=== PATIENT | female | born 1945 | race Caucasian/White ===

== ENCOUNTER 2019-04-05 08:00 | Inpatient (IN) | payer MEDICARE ==
[2019-04-05 09:47] VITALS: BMI 29.0
[2019-04-10] MEDS ORDERED: Tranexamic Acid 1,000 MG/10 ML VIAL ONE (06:49)
[2019-04-10] MEDS ORDERED: Sodium Chloride 0.9% 100 ML ONE (06:49)
[2019-04-10] MEDS ORDERED: Vancomycin HCl 1.5 GM in Sodium Chloride 0.9% 250 ML 300 ML IVPB SCH (07:00)
[2019-04-10] MEDS ORDERED: Fentanyl 100 MCG/2 ML VIAL ONE ×2 (07:26→10:52)
[2019-04-10] MEDS ORDERED: Midazolam HCl 2 mg/2 ml Vial ONE (07:26)
[2019-04-10] MEDS ORDERED: Lidocaine 1.5% w/Epi 1:200K 30 ML VIAL (Epid Use) ONE (07:43)
[2019-04-10] MEDS ORDERED: Promethazine HCl 25 MG/ML VIAL IM PRN ×3 (08:45→10:11)
[2019-04-10] MEDS ORDERED: HYDROcodone/Acetaminophen 10/325 mg Tablet PO PRN ×2 (08:45)
[2019-04-10] MEDS ORDERED: Ondansetron PF 4 MG/2 ML Vial IVP PRN (08:45)
[2019-04-10] MEDS ORDERED: Zolpidem Tartrate 5 MG TAB PO PRN ×2 (08:45→09:00)
[2019-04-10] MEDS ORDERED: Acetaminophen 325 MG TAB PO PRN (08:45)
[2019-04-10] MEDS ORDERED: diphenhydrAMINE 25 MG CAP PO PRN ×2 (08:45→09:00)
[2019-04-10] MEDS ORDERED: Acetaminophen 500 MG TAB PO PRN (08:53)
[2019-04-10] MEDS ORDERED: Lisinopril 10 MG TAB PO SCH (09:00)
[2019-04-10] MEDS ORDERED: Naloxone HCl 0.4 mg/ml Vial IV PRN (09:00)
[2019-04-10] MEDS ORDERED: diphenhydrAMINE 50 MG/ML VIAL IVP PRN (09:00)
[2019-04-10] MEDS ORDERED: Hydrocerin (Eucerin) Cream 120 gm Jar TOP PRN (09:00)
[2019-04-10] MEDS ORDERED: diphenhydrAMINE 50 MG/ML VIAL IM PRN (09:00)
[2019-04-10] MEDS ORDERED: RANITIDINE HCL 150 MG PO SCH (09:00)
[2019-04-10] MEDS ORDERED: traMADol HCl 50 MG TAB PO PRN (09:00)
[2019-04-10] MEDS ORDERED: Oxybutynin 5 MG TAB PO SCH (09:00)
[2019-04-10] MEDS ORDERED: Non-Formulary Item 1 EACH (Ubidecarenone [Co Q-10] 200 MG) PO SCH (09:00)
[2019-04-10] MEDS ORDERED: Multivitamin W/ Minerals 1 TAB PO SCH ×2 (09:00)
[2019-04-10] MEDS ORDERED: Promethazine HCl 25 MG SUPP PR PRN (09:00)
[2019-04-10] MEDS ORDERED: MULTIVITAMIN WITH MINERALS PO SCH (09:00)
[2019-04-10] MEDS ORDERED: Fentanyl 5 mcg/Bup 0.075% Cadd 100 ML EPIDURAL SCH (09:00)
[2019-04-10] MEDS ORDERED: Naloxone HCl 0.4 mg/ml Vial IVP PRN (09:00)
[2019-04-10] MEDS ORDERED: Bupivacaine/Epinephrine 0.25% 30 ML VIAL ONE (09:48)
[2019-04-10] MEDS ORDERED: Rocuronium Bromide 10 MG/ML (10ML VIAL) ONE (09:50)
[2019-04-10] MEDS ORDERED: ePHEDrine 50 MG/ML VIAL ONE (09:50)
[2019-04-10] MEDS ORDERED: Lidocaine 1% PF 5 ML VIAL ONE (09:50)
[2019-04-10] MEDS ORDERED: PROPOFOL 200 MG/20 ML VIAL ONE (09:50)
[2019-04-10] MEDS ORDERED: Ondansetron PF 4 MG/2 ML Vial ONE (09:50)
[2019-04-10] MEDS ORDERED: Glycopyrrolate 0.2 MG/ML 5 ML SYRINGE ONE (09:50)
[2019-04-10] MEDS ORDERED: Ondansetron HCl/PF 4 MG/2 ML Vial IVP PRN (10:11)
[2019-04-10] MEDS ORDERED: Promethazine HCl 25 MG/ML VIAL SLOW IVP PRN (10:11)
--- NOTE | 2019-04-10 11:07 | RAD ---
Right hip 2 views HISTORY: Arthritis. Right hip replacement. FINDINGS: Metallic hip prosthesis is in place. No perihardware lucency. Soft tissue gas from recent s urgery. IMPRESSION: Right hip prosthesis is in good radiographic position.
[2019-04-10] MEDS ORDERED: Promethazine HCl 25 MG/ML VIAL ONE (11:10)
[2019-04-10] MEDS: Aspirin 81 mg Enteric Coated Tablet PO SCH ×2 (14:09→19:56)
[2019-04-10] MEDS: Sodium Chloride 0.9% 1,000 ML IV SCH ×2 (14:09→19:54)
[2019-04-10] MEDS: Senokot S 8.6-50 MG TAB PO SCH ×2 (14:10→19:56)
[2019-04-10] MEDS: Ferrous Gluconate 324 MG TAB PO SCH ×2 (14:10→19:56)
[2019-04-10] MEDS: Famotidine 20 MG TAB PO SCH (14:10)
[2019-04-10] MEDS: Lisinopril 10 MG TAB PO SCH (14:10)
[2019-04-10] MEDS: Ketorolac Tromethamine 30 MG/ML VIAL IVP SCH ×3 (14:10→23:09)
--- NOTE | 2019-04-10 15:39 | OP ---
DATE OF PROCEDURE: 04/10/2019 PREOPERATIVE DIAGNOSIS: End-stage bicompartmental osteoarthritis, right hip. POSTOPERATIVE DIAGNOSES: 1. End-stage bicompartmental osteoarthritis, right hip. 2. Spontaneous chronic rupture of abductor muscles. OPERATIVE PROCEDURES: 1. Press-fit right total hip arthroplasty. 2. Primary repair of abductor tendon/muscle. CHAIN SAW MECHANIC: Robles Rodriguez PA-C. ANESTHESIA: General via endotracheal tube augmented with indwelling epidural. COMPONENTS USED: [employer] Accolade II press-fit size 5 hip stem with a 50 mm Trident PSL press-fit acetabular shell, 10 degree polyethylene fixed bearing insert, and a 36 mm V40 neutral offset femoral head. ESTIMATED BLOOD LOSS: 100. DRAINS: None. SPECIMENS: None. COMPLICATIONS: None. COUNTS: Correct. INPUT: 1500 mL crystalloid. OUTPUT: 200 mL clear yellow urine. FINDINGS: End-stage bicompartmental disease, cyar-kg-feer arthrosis for reticular osteophyte formation, large serous effusion, hypertrophic synovium and changes consistent with degenerative bicompartmental OA. INDICATION: Alize is a 74-year-old white female who has had chronic right hip, groin, and thigh pains with standing and walking for the last 5 to 10 years. She has failed conservative management and elected to proceed with total hip arthroplasty as definitive treatment of her pain. PROCEDURE IN DETAIL: After informed consent was obtained in the preoperative holding area, the patient was taken to the operative suite where general anesthesia was induced. The patient was then positioned in the lateral decubitus position. The hip was then prepped and draped in usual sterile fashion. The patient received preoperative antibiotics. Prior to incision, time-out was called and all members of the surgical team agreed upon site, surgeon, and patient. After this, a longitudinal incision was made directly over the trochanter, noted by palpation extending 2 fingerbreadths above and below the trochanter. The deeper subcutaneous layer was undermined with Bovie electrocautery. The iliotibial band was encountered and incised sharply and the plane below this was developed bluntly. A Charnley retractor was placed to hold this opened. The lateral aspect of the trochanter and the abductor muscles were encountered and then reflected anteriorly off the trochanter using Bovie electrocautery. Once this was completed, the anterior capsule was then encountered and identified and copious capsulotomy was carried out, exposing the femoral neck and head. Dislocation maneuver was then performed and an in situ provisional neck cut was then made using the oscillating saw. Attention was then turned to acetabular preparation and sequential reaming was carried out up to the appropriate diameter. A trial was then malleted into place with good firm resistance and no pullout. The permanent acetabular shell was then malleted squarely into place, as was the appropriate liner. Once completed, the wound was copiously irrigated and attention was then turned to femoral preparation. Flexion and external rotation were performed of the exposed thigh and femoral elevators were then placed at the proximal aspect of the wound. Canal finder was used to establish the length of the canal and sequential reaming was carried out, followed by broaching. Once the appropriate stability was established with the trial broaches with flexion, extension and rotational stability, we did trial with neutral and 2 mm offset incremental necks. Once the appropriate size was decided upon, with good stability noted with flexion, extension, internal and external rotation and shuck being negative, we removed the femoral trial broach and malletted into place the permanent prosthesis with good firm fit, which was also stable to rotation. Again, the hip felt very stable to flexion, extension, internal and external rotation. Leg lengths appeared near anatomic clinically and we were quite happy with prosthesis placement. Copious irrigation was then carried out through the entirety of the wound. Primary closure of the abductors was accomplished with interrupted #2 Vicryl [id number] stitches and the IT band was then closed with interrupted #2 Vicryl, oversewn with a #2 running barbed Quill stitch. Subcutaneous fascia was closed with running barbed Quill stitch and a subcuticular Monocryl barbed Quill stitch was used for skin closure and augmented with skin cement. A sterile dressing was applied. The procedure was terminated without any complication. All counts were correct. The patient was awakened in the operative suite and taken to the recovery room in stable condition. Job ID: [id number]
[2019-04-10] MEDS: CEFAZOLIN 2 GM in Premix Bag 1 BAG IVPB SCH ×2 (15:51→23:09)
[2019-04-10] MEDS: HYDROcodone/Acetaminophen 5/325 mg Tablet PO PRN ×3 (15:52→20:07)
[2019-04-10] MEDS: Ondansetron PF 4 MG/2 ML Vial IVP PRN (16:23)
--- NOTE | 2019-04-10 19:36 | PDOC.PN ---
- Subjective Encounter Start Date: 04/10/19 Encounter Start Time: 16:30 Subjective: no sob or chest pain -: has pain in her right hip -: stood with PT post op - Objective MAR Reviewed: Yes Vital Signs & Weight: Vital Signs (12 hours) Temp Pulse Resp BP BP Pulse Ox 04/10/19 15:14 146/58 H 04/10/19 13:47 97.6 F 67 18 130/49 L 99 Weight Weight 185 lb I&O: 04/09/19 04/10/19 04/11/19 06:59 06:59 06:59 Intake Total 1350 Output Total 750 Balance 600 Phys Exam - Physical Examination HEENT: PERRLA, moist MMs Neck: no JVD, supple Respiratory: no wheezing, no rales Cardiovascular: RRR, no significant murmur Gastrointestinal: soft, non-tender, positive bowel sounds Musculoskeletal: no edema, pulses present Neurological: non-focal, moves all 4 limbs Psychiatric: normal affect, A&O x 3 Dx/Plan (1) status post right hip arthroplasty Status: Acute Comment: 04/10/2019 (2) HTN (hypertension) Code(s): I10 - ESSENTIAL (PRIMARY) HYPERTENSION Status: Chronic Qualifiers: Hypertension type: essential hypertension Qualified Code(s): I10 - Essential (primary) hypertension (3) Dyslipidemia Code(s): E78.5 - HYPERLIPIDEMIA, UNSPECIFIED Status: Chronic (4) Urge incontinence Code(s): N39.41 - URGE INCONTINENCE Status: Chronic - Plan hemostable post op, has some pain at operated site -: continue lisinopril, oxybutinin, zocor -: on asp bid, fentanyl and narco prn -: might need rehab if she didn't ambulate much in am -: will f/u * . Review of Systems - Medications/Allergies Allergies/Adverse Reactions: Allergies Allergy/AdvReac Type Severity Reaction Status Date / Time Sulfa (Sulfonamide Allergy Hives Verified 04/05/19 08:33 Antibiotics) Medications: Current Medications Acetaminophen (Tylenol) 1,000 mg PO Q6H PRN PRN Reason: Headache/Fever or Pain Hydrocodone Bitart/Acetaminophen ([place] 5/325) 1 tab PO Q4H PRN PRN Reason: Mild Pain 1-3 Last Admin: 04/10/19 16:26 Dose: 1 tab Hydrocodone Bitart/Acetaminophen ([place] 5/325) 2 tab PO Q4H PRN PRN Reason: For Moderate Pain 4-6 Acidophilus (Floranex) 2 tab PO HS [facility] Aspirin (Ecotrin) 81 mg PO BID [facility] Last Admin: 04/10/19 14:09 Dose: Not Given Atorvastatin Calcium (Lipitor) 10 mg PO HS [facility] Coenzyme Q10 (Coenzyme Q10) 200 mg PO DAILY [facility] Diphenhydramine HCl (Benadryl) 25 mg PO Q3H PRN PRN Reason: Itching Diphenhydramine HCl (Benadryl) 25 mg IM Q3H PRN PRN Reason: Itching Diphenhydramine HCl (Benadryl) 25 mg IVP Q3H PRN PRN Reason: Itching Emollient Cream (Hydrocerin Cream) 0 gm TOP PRN PRN PRN Reason: Itching Famotidine (Pepcid) 20 mg PO DAILY [facility] Last Admin: 04/10/19 14:10 Dose: Not Given Ferrous Gluconate (Fergon) 324 mg PO BID [facility] Last Admin: 04/10/19 14:10 Dose: Not Given Cefazolin Sodium/Dextrose 2 gm (/ Device) 50 mls @ 100 mls/hr IVPB Q8H [facility] Stop: 04/10/19 23:29 Last Admin: 04/10/19 15:51 Dose: 50 mls Sodium Chloride (Normal Saline 0.9%) 1,000 mls @ 100 mls/hr IV .Q10H [facility] Last Admin: 04/10/19 14:09 Dose: Not Given Fentanyl Citrate (Fentanyl/Bupivacaine) 100 mls @ 0 mls/hr EPIDURAL INF [facility] Iron/Minerals/Multivitamins (Theragran M) 1 tab PO DAILY [facility] Ketorolac Tromethamine (Toradol) 15 mg IVP Q6HR [facility] Stop: 04/12/19 06:01 Last Admin: 04/10/19 18:39 Dose: 15 mg Lisinopril (Zestril) 10 mg PO QAM [facility] Last Admin: 04/10/19 14:10 Dose: Not Given Loratadine (Claritin) 10 mg PO [facility] Miscellaneous Information (Communication Order-Pharmacy) 1 each FS ASDIR [facility] Naloxone HCl (Narcan) 0.2 mg IV Q5MIN PRN PRN Reason: RR <=8 OR OBTUNDED/UNAROUSABLE Naloxone HCl (Narcan) 0.1 mg IVP Q15MIN PRN PRN Reason: URINARY RETENTION Ondansetron HCl (Zofran) 4 mg IVP Q6H PRN PRN Reason: Nausea/Vomiting Last Admin: 04/10/19 16:23 Dose: 4 mg Oxybutynin Chloride (Ditropan) 5 mg PO QAM [facility] Promethazine HCl (Phenergan) 12.5 mg IM Q4H PRN PRN Reason: Nausea Promethazine HCl (Phenergan Suppository) 25 mg [place] Q4H PRN PRN Reason: Nausea/Vomiting Senna/Docusate Sodium (Senokot S) 2 tab PO BID [facility] Last Admin: 04/10/19 14:10 Dose: Not Given Sodium Chloride (Flush - Normal Saline) 10 ml IVF PRN PRN PRN Reason: Saline Flush Tramadol HCl (Ultram) 50 mg PO Q6H PRN PRN Reason: Mild Pain 1-3 Tramadol HCl (Ultram) 100 mg PO Q6H PRN PRN Reason: Moderate Pain 4-6 Zolpidem Tartrate (Ambien) 5 mg PO HSPRN PRN PRN Reason: Insomnia
[2019-04-10] MEDS: Lactinex Tablet PO SCH (19:56)
[2019-04-10] MEDS: Loratadine 10 MG TAB PO SCH (19:56)
[2019-04-10] MEDS: Atorvastatin Calcium 10 MG TAB PO SCH (19:56)
[2019-04-10] MEDS ORDERED: Simvastatin 20 MG TAB PO SCH (21:00)
[2019-04-10] MEDS ORDERED: Non-Formulary Item 1 EACH (Cetirizine Hcl [Zyrtec] 10 MG) PO SCH (21:00)
[2019-04-10] MEDS ORDERED: ACIDOPH PARACASEI B LACTIS PO SCH (21:00)
[2019-04-11] MEDS: HYDROcodone/Acetaminophen 5/325 mg Tablet PO PRN (04:27)
[2019-04-11] MEDS: fentaNYL Citrate/PF 500 MCG, Bupivacaine 10 ML in Sodium Chloride 0.9% 80 ML EPIDURAL SCH (04:28)
[2019-04-11] MEDS: Sodium Chloride 0.9% 1,000 ML IV SCH ×3 (05:48→22:06)
[2019-04-11] MEDS: Ketorolac Tromethamine 30 MG/ML VIAL IVP SCH ×4 (06:08→23:15)
[2019-04-11 07:36] LABS: Hemoglobin 10.5 g/dL (12.0-16.0); Mean Corpuscular HGB CONC 33.1 g/dL (32.0-36.0); Mean Corpuscular Hemoglobin 32.2 pg (27.0-31.0); Mean Corpuscular Volume 97.1 fL (78.0-98.0); Mean Platelet Volume 7.1 fL (7.4-10.4); Platelet Count 191 thou/uL (130-400); RBC Distribution Width 11.7 % (11.5-14.5); Red Blood Cell (RBC) Count 3.26 mill/uL (4.20-5.40); White Blood Cell (WBC) Count 7.1 thou/uL (4.8-10.8)
[2019-04-11] MEDS: Ondansetron PF 4 MG/2 ML Vial IVP PRN (08:57)
[2019-04-11] MEDS: Ubidecarenone 50 MG CAP PO SCH (09:02)
[2019-04-11] MEDS: Aspirin 81 mg Enteric Coated Tablet PO SCH ×2 (09:02→22:05)
[2019-04-11] MEDS: Famotidine 20 MG TAB PO SCH (09:03)
[2019-04-11] MEDS: Oxybutynin 5 MG TAB PO SCH (09:03)
[2019-04-11] MEDS: Senokot S 8.6-50 MG TAB PO SCH ×2 (09:03→22:05)
[2019-04-11] MEDS: Ferrous Gluconate 324 MG TAB PO SCH ×2 (09:03→22:05)
[2019-04-11] MEDS: Multivitamin W/ Minerals 1 TAB PO SCH (09:03)
[2019-04-11] MEDS: Lisinopril 10 MG TAB PO SCH (09:04)
[2019-04-11] MEDS ORDERED: Sodium Chloride 0.9% 500 ML IVPB SCH (10:00)
--- NOTE | 2019-04-11 11:44 | PDOC.PN ---
- Subjective Encounter Start Date: 04/11/19 Encounter Start Time: 10:00 Subjective: c/o pain right hip -: has not amb so far -: a bit dizzy, sbp around 100 - Objective MAR Reviewed: Yes Vital Signs & Weight: Vital Signs (12 hours) Temp Pulse Resp BP BP Pulse Ox 04/11/19 10:59 97.9 F 77 16 92/60 93 L 04/11/19 09:04 100/62 04/11/19 07:11 99 F 78 14 98/60 98 04/11/19 04:18 99.3 F 79 16 102/64 99 04/11/19 00:16 98.0 F 75 16 100/61 98 Weight Weight 185 lb I&O: 04/10/19 04/11/19 04/12/19 06:59 06:59 06:59 Intake Total 1350 Output Total 750 Balance 600 Result Diagrams: 04/11/19 06:54 Phys Exam - Physical Examination HEENT: PERRLA, sclera anicteric Neck: no JVD, supple Respiratory: no wheezing, no rales Cardiovascular: RRR, no significant murmur Gastrointestinal: soft, non-tender, positive bowel sounds Musculoskeletal: pulses present right hip in dressing Neurological: non-focal, moves all 4 limbs Psychiatric: normal affect, A&O x 3 Dx/Plan (1) status post right hip arthroplasty Status: Acute Comment: 04/10/2019 (2) HTN (hypertension) Code(s): I10 - ESSENTIAL (PRIMARY) HYPERTENSION Status: Chronic Qualifiers: Hypertension type: essential hypertension Qualified Code(s): I10 - Essential (primary) hypertension (3) Dyslipidemia Code(s): E78.5 - HYPERLIPIDEMIA, UNSPECIFIED Status: Chronic (4) Urge incontinence Code(s): N39.41 - URGE INCONTINENCE Status: Chronic - Plan 1/2 liter NS bolus, dc lisinopril -: counselled to try and ambulate with PT today -: will likely need swing bed/rehab -: continue lipitor and oxybutynin -: is on fentanyl and narco prn, nerve block, asp bid * . Review of Systems - Medications/Allergies Allergies/Adverse Reactions: Allergies Allergy/AdvReac Type Severity Reaction Status Date / Time Sulfa (Sulfonamide Allergy Hives Verified 04/05/19 08:33 Antibiotics) Medications: Current Medications Acetaminophen (Tylenol) 1,000 mg PO Q6H PRN PRN Reason: Headache/Fever or Pain Hydrocodone Bitart/Acetaminophen ([place] 5/325) 1 tab PO Q4H PRN PRN Reason: Mild Pain 1-3 Last Admin: 04/10/19 16:26 Dose: 1 tab Hydrocodone Bitart/Acetaminophen ([place] 5/325) 2 tab PO Q4H PRN PRN Reason: For Moderate Pain 4-6 Last Admin: 04/11/19 04:27 Dose: 2 tab Acidophilus (Floranex) 2 tab PO HS [facility] Last Admin: 04/10/19 19:56 Dose: 2 tab Aspirin (Ecotrin) 81 mg PO BID [facility] Last Admin: 04/11/19 09:02 Dose: 81 mg Atorvastatin Calcium (Lipitor) 10 mg PO HS [facility] Last Admin: 04/10/19 19:56 Dose: 10 mg Coenzyme Q10 (Coenzyme Q10) 200 mg PO DAILY [facility] Last Admin: 04/11/19 09:02 Dose: 200 mg Diphenhydramine HCl (Benadryl) 25 mg PO Q3H PRN PRN Reason: Itching Diphenhydramine HCl (Benadryl) 25 mg IM Q3H PRN PRN Reason: Itching Diphenhydramine HCl (Benadryl) 25 mg IVP Q3H PRN PRN Reason: Itching Emollient Cream (Hydrocerin Cream) 0 gm TOP PRN PRN PRN Reason: Itching Famotidine (Pepcid) 20 mg PO DAILY [facility] Last Admin: 04/11/19 09:03 Dose: 20 mg Ferrous Gluconate (Fergon) 324 mg PO BID [facility] Last Admin: 04/11/19 09:03 Dose: 324 mg Sodium Chloride (Normal Saline 0.9%) 1,000 mls @ 100 mls/hr IV .Q10H [facility] Last Admin: 04/11/19 05:48 Dose: Not Given Fentanyl Citrate 500 mcg/Bupivacaine HCl 10 ml/ Sodium Chloride 100 mls @ 0 mls /hr EPIDURAL INF [facility] Last Admin: 04/11/19 04:28 Dose: 100 mls Acetaminophen 1,000 mg/ Device 100 mls @ 400 mls/hr IVPB 0300,0900,1500,2100 [facility] Stop: 04/12/19 15:01 Sodium Chloride (Normal Saline 0.9%) 500 mls @ 999 mls/hr IVPB NOW [facility] Stop: 04/11/19 12:00 Iron/Minerals/Multivitamins (Theragran M) 1 tab PO DAILY [facility] Last Admin: 04/11/19 09:03 Dose: 1 tab Ketorolac Tromethamine (Toradol) 15 mg IVP Q6HR [facility] Stop: 04/12/19 06:01 Last Admin: 04/11/19 06:08 Dose: 15 mg [facility]) [facility] Last Admin: 04/11/19 09:04 Dose: Not Given Loratadine (Claritin) 10 mg PO HS [facility] Last Admin: 04/10/19 19:56 Dose: 10 mg Miscellaneous Information (Communication Order-Pharmacy) 1 each FS ASDIR [facility] Naloxone HCl (Narcan) 0.2 mg IV Q5MIN PRN PRN Reason: RR <=8 OR OBTUNDED/UNAROUSABLE Naloxone HCl (Narcan) 0.1 mg IVP Q15MIN PRN PRN Reason: URINARY RETENTION Ondansetron HCl (Zofran) 4 mg IVP Q6H PRN PRN Reason: Nausea/Vomiting Last Admin: 04/11/19 08:57 Dose: 4 mg Oxybutynin Chloride (Ditropan) [facility] Last Admin: 04/11/19 09:03 Dose: 5 mg Promethazine HCl (Phenergan) 12.5 mg IM Q4H PRN PRN Reason: Nausea Promethazine HCl (Phenergan Suppository) 25 mg [place] Q4H PRN PRN Reason: Nausea/Vomiting Senna/Docusate Sodium (Senokot S) 2 tab PO BID [facility] Last Admin: 04/11/19 09:03 Dose: 2 tab Sodium Chloride (Flush - Normal Saline) 10 ml IVF PRN PRN PRN Reason: Saline Flush Tramadol HCl (Ultram) 50 mg PO Q6H PRN PRN Reason: Mild Pain 1-3 Tramadol HCl (Ultram) 100 mg PO Q6H PRN PRN Reason: Moderate Pain 4-6 Zolpidem Tartrate (Ambien) 5 mg PO HSPRN PRN PRN Reason: Insomnia
[2019-04-11] MEDS: Acetaminophen 1,000 MG in Premix Bag 1 BAG IVPB SCH ×2 (15:46→22:04)
[2019-04-11] MEDS: traMADol HCl 50 MG TAB PO PRN (15:47)
--- NOTE | 2019-04-11 16:27 | PRG ---
DATE OF SERVICE: 04/11/2019 SUBJECTIVE: Alize is a 74-year-old white female, postop day 1 from a right total hip arthroplasty. Her pain was little out of control last evening, but her blood pressure had been low and nursing staff had a little reluctance to administer pain medications due to her hypotension. Therefore, her epidural was also backed off a little bit and she has had some breakthrough pain, but it has been tolerable. The patient did sleep well last night. OBJECTIVE: VITAL SIGNS: Stable. She is afebrile. Systolic pressures are in the 90s to 100s. GENERAL: She is alert and oriented to person, place, time, situation, grossly nonfocal and responsive to examiner. NEUROLOGIC: She is neurovascularly intact in the right lower extremity. No shortening or external rotation seen. LABORATORY DATA: Hemoglobin and hematocrit 10 and 31. IMPRESSION: 1. A 74-year-old female, postop day 1 right total hip arthroplasty, doing well. 2. Asymptomatic anemia. PLAN: Continue current care, probable discharge tomorrow. If the patient cannot engage in physical therapy, then give consideration to another overnight stay. Job ID: [id number]
[2019-04-11] MEDS: Lactinex Tablet PO SCH (22:05)
[2019-04-11] MEDS: Loratadine 10 MG TAB PO SCH (22:05)
[2019-04-11] MEDS: Atorvastatin Calcium 10 MG TAB PO SCH (22:05)
[2019-04-12] MEDS: Acetaminophen 1,000 MG in Premix Bag 1 BAG IVPB SCH ×2 (04:23→08:08)
[2019-04-12] MEDS: fentaNYL Citrate/PF 500 MCG, Bupivacaine 10 ML in Sodium Chloride 0.9% 80 ML EPIDURAL SCH (04:38)
[2019-04-12] MEDS: Ketorolac Tromethamine 30 MG/ML VIAL IVP SCH (06:16)
[2019-04-12 06:45] LABS: Hemoglobin 9.8 g/dL (12.0-16.0); Mean Corpuscular HGB CONC 33.1 g/dL (32.0-36.0); Mean Corpuscular Hemoglobin 32.1 pg (27.0-31.0); Mean Corpuscular Volume 96.8 fL (78.0-98.0); Mean Platelet Volume 7.3 fL (7.4-10.4); Platelet Count 190 thou/uL (130-400); RBC Distribution Width 11.9 % (11.5-14.5); Red Blood Cell (RBC) Count 3.06 mill/uL (4.20-5.40); White Blood Cell (WBC) Count 6.6 thou/uL (4.8-10.8)
[2019-04-12] MEDS: Famotidine 20 MG TAB PO SCH (08:08)
[2019-04-12] MEDS: Multivitamin W/ Minerals 1 TAB PO SCH (08:08)
[2019-04-12] MEDS: Aspirin 81 mg Enteric Coated Tablet PO SCH ×2 (08:08→21:21)
[2019-04-12] MEDS: Ubidecarenone 50 MG CAP PO SCH (08:08)
[2019-04-12] MEDS: Ferrous Gluconate 324 MG TAB PO SCH ×2 (08:08→21:21)
[2019-04-12] MEDS: Oxybutynin 5 MG TAB PO SCH (08:09)
[2019-04-12] MEDS: Senokot S 8.6-50 MG TAB PO SCH ×2 (08:09→21:21)
[2019-04-12 08:19] LABS: Anion Gap 10 mmol/L (10-20); BUN (Urea Nitrogen) 24 mg/dL (9.8-20.1); Calc. Creatinine Clearance 78 mL/min (70-130); Calcium 9.2 mg/dL (7.8-10.44); Carbon Dioxide 24 mmol/L (23-31); Chloride 103 mmol/L (98-107); Estimated GFR-MDRD 66; Glucose 113 mg/dL (83-110); Potassium 4.1 mmol/L (3.5-5.1); Sodium 133 mmol/L (136-145)
[2019-04-12] MEDS: traMADol HCl 50 MG TAB PO PRN (12:21)
--- NOTE | 2019-04-12 12:27 | PDOC.PN ---
- Subjective Encounter Start Date: 04/12/19 Encounter Start Time: 10:00 Subjective: is sitting in chair, says she ambulated a bit with PT -: pain is better now, is motivated to ambulate more -: no sob or chest pain - Objective MAR Reviewed: Yes Vital Signs & Weight: Vital Signs (12 hours) Temp Pulse Resp BP Pulse Ox 04/12/19 07:32 98.6 F 81 16 96/62 97 04/12/19 04:32 98 F 71 16 101/67 94 L 04/12/19 00:58 98.2 F 71 16 110/73 93 L Weight Admit Weight 185 lb Weight 185 lb I&O: 04/11/19 04/12/19 04/13/19 06:59 06:59 06:59 Intake Total 1350 2400 Output Total 750 450 Balance 600 1950 Result Diagrams: 04/12/19 06:03 04/12/19 07:40 Phys Exam - Physical Examination HEENT: PERRLA, moist MMs Neck: no JVD, supple Respiratory: no wheezing, no rales Cardiovascular: RRR, no significant murmur Gastrointestinal: soft, non-tender, positive bowel sounds Musculoskeletal: no edema, pulses present Neurological: non-focal, moves all 4 limbs Psychiatric: normal affect, A&O x 3 Dx/Plan (1) status post right hip arthroplasty Status: Acute Comment: 04/10/2019 (2) HTN (hypertension) Code(s): I10 - ESSENTIAL (PRIMARY) HYPERTENSION Status: Chronic Qualifiers: Hypertension type: essential hypertension Qualified Code(s): I10 - Essential (primary) hypertension (3) Dyslipidemia Code(s): E78.5 - HYPERLIPIDEMIA, UNSPECIFIED Status: Chronic (4) Urge incontinence Code(s): N39.41 - URGE INCONTINENCE Status: Chronic - Plan hemostable, sbp around 100, is off lisinopril -: will need swing bed likely -: counselled to work with PT and mobilize more -: continue asp bid, zocor, oxybutynin, norco, fentanyl -: dc plan per ortho advice * . Review of Systems - Medications/Allergies Allergies/Adverse Reactions: Allergies Allergy/AdvReac Type Severity Reaction Status Date / Time Sulfa (Sulfonamide Allergy Hives Verified 04/05/19 08:33 Antibiotics) Medications: Current Medications Acetaminophen (Tylenol) 1,000 mg PO Q6H PRN PRN Reason: Headache/Fever or Pain Hydrocodone Bitart/Acetaminophen ([place] 5/325) 1 tab PO Q4H PRN PRN Reason: Mild Pain 1-3 Last Admin: 04/10/19 16:26 Dose: 1 tab Hydrocodone Bitart/Acetaminophen ([place] 5/325) 2 tab PO Q4H PRN PRN Reason: For Moderate Pain 4-6 Last Admin: 04/11/19 04:27 Dose: 2 tab Acidophilus (Floranex) 2 tab PO HS [facility] Last Admin: 04/11/19 22:05 Dose: 2 tab Aspirin (Ecotrin) 81 mg PO BID [facility] Last Admin: 04/12/19 08:08 Dose: 81 mg Atorvastatin Calcium (Lipitor) 10 mg PO HS [facility] Last Admin: 04/11/19 22:05 Dose: 10 mg Coenzyme Q10 (Coenzyme Q10) 200 mg PO DAILY [facility] Last Admin: 04/12/19 08:08 Dose: 200 mg Diphenhydramine HCl (Benadryl) 25 mg PO Q3H PRN PRN Reason: Itching Diphenhydramine HCl (Benadryl) 25 mg IM Q3H PRN PRN Reason: Itching Diphenhydramine HCl (Benadryl) 25 mg IVP Q3H PRN PRN Reason: Itching Emollient Cream (Hydrocerin Cream) 0 gm TOP PRN PRN PRN Reason: Itching Famotidine (Pepcid) 20 mg PO DAILY [facility] Last Admin: 04/12/19 08:08 Dose: 20 mg Ferrous Gluconate (Fergon) 324 mg PO BID [facility] Last Admin: 04/12/19 08:08 Dose: 324 mg Sodium Chloride (Normal Saline 0.9%) 1,000 mls @ 100 mls/hr IV .Q10H [facility] Last Admin: 04/11/19 22:06 Dose: 1,000 mls Fentanyl Citrate 500 mcg/Bupivacaine HCl 10 ml/ Sodium Chloride 100 mls @ 0 mls /hr EPIDURAL INF [facility] Last Admin: 04/12/19 04:38 Dose: 100 mls Acetaminophen 1,000 mg/ Device 100 mls @ 400 mls/hr IVPB 0300,0900,1500,2100 [facility] Stop: 04/12/19 15:01 Last Admin: 04/12/19 08:08 Dose: 100 mls Iron/Minerals/Multivitamins (Theragran M) 1 tab PO DAILY [facility] Last Admin: 04/12/19 08:08 Dose: 1 tab Loratadine (Claritin) 10 mg PO HS [facility] Last Admin: 04/11/19 22:05 Dose: 10 mg Miscellaneous Information (Communication Order-Pharmacy) 1 each FS ASDIR [facility] Naloxone HCl (Narcan) 0.2 mg IV Q5MIN PRN PRN Reason: RR <=8 OR OBTUNDED/UNAROUSABLE Naloxone HCl (Narcan) 0.1 mg IVP Q15MIN PRN PRN Reason: URINARY RETENTION Ondansetron HCl (Zofran) 4 mg IVP Q6H PRN PRN Reason: Nausea/Vomiting Last Admin: 04/11/19 08:57 Dose: 4 mg Oxybutynin Chloride (Ditropan) 5 mg PO QAM [facility] Last Admin: 04/12/19 08:09 Dose: 5 mg Promethazine HCl (Phenergan) 12.5 mg IM Q4H PRN PRN Reason: Nausea Promethazine HCl (Phenergan Suppository) 25 mg [place] Q4H PRN PRN Reason: Nausea/Vomiting Senna/Docusate Sodium (Senokot S) 2 tab PO BID [facility] Last Admin: 04/12/19 08:09 Dose: 2 tab Sodium Chloride (Flush - Normal Saline) 10 ml IVF PRN PRN PRN Reason: Saline Flush Tramadol HCl (Ultram) 50 mg PO Q6H PRN PRN Reason: Mild Pain 1-3 Tramadol HCl (Ultram) 100 mg PO Q6H PRN PRN Reason: Moderate Pain 4-6 Last Admin: 04/12/19 12:21 Dose: 100 mg Zolpidem Tartrate (Ambien) 5 mg PO HSPRN PRN PRN Reason: Insomnia
[2019-04-12] MEDS: HYDROcodone/Acetaminophen 5/325 mg Tablet PO PRN ×2 (17:09→21:20)
[2019-04-12] MEDS: Sodium Chloride 0.9% 1,000 ML IV SCH ×2 (17:22→21:22)
[2019-04-12] MEDS: Lactinex Tablet PO SCH (21:21)
[2019-04-12] MEDS: Loratadine 10 MG TAB PO SCH (21:21)
[2019-04-12] MEDS: Atorvastatin Calcium 10 MG TAB PO SCH (21:21)
[2019-04-13] MEDS: HYDROcodone/Acetaminophen 5/325 mg Tablet PO PRN ×3 (05:59→14:44)
[2019-04-13] MEDS: Sodium Chloride 0.9% 1,000 ML IV SCH ×2 (06:03→09:45)
[2019-04-13] MEDS: Ubidecarenone 50 MG CAP PO SCH (08:30)
[2019-04-13] MEDS: Multivitamin W/ Minerals 1 TAB PO SCH (08:31)
[2019-04-13] MEDS: Senokot S 8.6-50 MG TAB PO SCH (08:31)
[2019-04-13] MEDS: Famotidine 20 MG TAB PO SCH (08:31)
[2019-04-13] MEDS: Aspirin 81 mg Enteric Coated Tablet PO SCH (08:32)
[2019-04-13] MEDS: Oxybutynin 5 MG TAB PO SCH (08:32)
[2019-04-13] MEDS: Ferrous Gluconate 324 MG TAB PO SCH (08:32)
[2019-04-13] MEDS: traMADol HCl 50 MG TAB PO PRN (09:25)
[2019-04-13] MEDS: Ondansetron PF 4 MG/2 ML Vial IVP PRN (12:34)
[2019-04-13 18:07] VITALS: BP 101/67; TEMP 98.7
--- NOTE | 2019-04-14 01:58 | DIS ---
DATE OF ADMISSION: 04/10/2019 DATE OF DISCHARGE: 04/13/2019 DISCHARGE DISPOSITION: [facility]. DISCHARGE DIAGNOSES: 1. Right total hip replacement. 2. Osteoarthritis of the right hip. 3. Hypertension. 4. Dyslipidemia. 5. Urge incontinence. DISCHARGE MEDICATIONS: Include; 1. Multivitamin once daily. 2. [place] 5/325 q.4 as needed. 3. Ferrous gluconate 324 mg twice daily. 4. Pepcid 20 mg daily. 5. Aspirin 81 mg daily. 6. CoQ10 200 mg daily. 7. Simvastatin 20 mg at bedtime. 8. Ranitidine 150 mg daily. 9. Oxybutynin 5 mg daily. 10. Lisinopril 10 mg once a day. 11. Ibuprofen 600 mg as directed. 12. Zyrtec 10 mg at bedtime. 13. Probiotic two capsules at bedtime. CODE STATUS: Full code. ALLERGIES: SULFA. HOSPITAL COURSE: Ms. Graff is a pleasant 74-year-old female who was admitted for an elective right total hip replacement. She underwent the procedure without any significant complications. The Hospitalist Service was consulted for medical management. She had an uneventful postoperative course and was subsequently discharged to the [facility]. Job ID: [id number]
== END 2019-04-13 18:12 | disposition short-term general hospital (02) | DRG 470 ==
LOC: SJJU 04-10 06:27 → SURG B 04-10 13:46
PROVIDERS: ADMIT Orthopaedic Surgery; ATTEND Orthopaedic Surgery
PROC: 0SR904A Replacement of Right Hip Joint with Ceramic on Polyethylene Synthetic Substitute, Uncemented, Open Approach (ICD-10-PCS; principal; 2019-04-10)
PROC: 0KQN0ZZ Repair Right Hip Muscle, Open Approach (ICD-10-PCS; 2019-04-10)
DX: M16.11 Unilateral primary osteoarthritis, right hip (principal); M62.151 Other rupture of muscle (nontraumatic), right thigh; I10 Essential (primary) hypertension; E78.5 Hyperlipidemia, unspecified; N39.41 Urge incontinence; I95.9 Hypotension, unspecified; D64.9 Anemia, unspecified
CPT/HCPCS: 36415; 80048; 85027; C1776; J0131; J0690; J1885; J2001; J2250; J2405; J2550; J2704; J3010; J3370; J3490; J7050

== ENCOUNTER 2019-04-05 08:04 | Outpatient (CLI) | payer MEDICARE ==
[2019-04-05 10:17] LABS: #Basophils 0.1 thou/uL (0.0-0.2); #Eosinphils 0.2 thou/uL (0.0-0.7); #Lymphocytes 1.2 thou/uL (1.20-3.40); #Monocytes 0.4 thou/uL (0.11-0.59); #Neutrophils 2.6 thou/uL (1.40-6.50); %Basophils 1.4 % (0.0-1.0); %Eosinophils 5.2 % (0.0-10.0); %Lymphocytes 27.7 % (21.0-51.0); %Monocytes 7.9 % (0.0-10.0); %Neutrophils 57.8 % (42.0-75.0); Hemoglobin 12.8 g/dL (12.0-16.0); Mean Corpuscular HGB CONC 32.6 g/dL (32.0-36.0); Mean Corpuscular Volume 95.4 fL (78.0-98.0); Mean Platelet Volume 7.2 fL (7.4-10.4); Platelet Count 264 thou/uL (130-400); RBC Distribution Width 11.6 % (11.5-14.5); Red Blood Cell (RBC) Count 4.13 mill/uL (4.20-5.40); White Blood Cell (WBC) Count 4.5 thou/uL (4.8-10.8)
[2019-04-05 10:22] LABS: INR-International Normal Ratio 0.9; Prothrombin Time 12.6 SEC (12.0-14.7)
[2019-04-05 10:32] LABS: Bacteria/HPF 1+ HPF (None Seen); Bilirubin Negative (Negative); Blood, Urine Negative (Negative); Clarity Clear (Clear); Glucose, Urine (Dipstick) Normal (Negative); Leukocyte 250 Leu/uL (Negative); Mucous/LPF Rare LPF (<2+); Nitrite Negative (Negative); Protein, Urine (Dipstick) Negative (Neg-Trace); RBC/HPF 0-3 HPF (0-3); Squamous Epithelial 0-3 HPF (0-3); Urobilinogen Normal mg/dL (Less than 2)
[2019-04-05 10:37] LABS: Anion Gap 13 mmol/L (10-20); BUN (Urea Nitrogen) 17 mg/dL (9.8-20.1); Calc. Creatinine Clearance 0 mL/min (70-130); Calcium 9.7 mg/dL (7.8-10.44); Carbon Dioxide 24 mmol/L (23-31); Chloride 106 mmol/L (98-107); Estimated GFR-MDRD 66; Glucose 89 mg/dL (83-110); Potassium 4.4 mmol/L (3.5-5.1); Sodium 139 mmol/L (136-145)
--- NOTE | 2019-04-05 16:16 | EKG ---
Test Reason : Blood Pressure : / mmHG Vent. Rate : 063 BPM Atrial Rate : 063 BPM P-R Int : 204 ms QRS Dur : 090 ms QT Int : 398 ms P-R-T Axes : 071 027 038 degrees QTc Int : 407 ms Normal sinus rhythm Normal ECG Confirmed by DB FIGUEREDO ([id number]) on 04/05/2019 4:16:40 PM Referred By: ALMA Confirmed By:DB FIGUEREDO
== END 2019-04-05 08:05 | disposition home or self-care (01) ==
LOC: LABBT 08:04
PROVIDERS: ATTEND Orthopaedic Surgery
DX: Z01.818 Encounter for other preprocedural examination (principal); M16.11 Unilateral primary osteoarthritis, right hip
CPT/HCPCS: 80048; 81001; 85025; 85610; 87081; 93005; 93010

== ENCOUNTER 2019-10-10 08:48 | Outpatient (CLI) | payer MEDICARE ==
--- NOTE | 2019-10-10 10:01 | RAD ---
XR Barium Swallow Esophagus HISTORY: Dysphagia. Hiatal hernia surgery. COMPARISON: None. FINDINGS: Swallowing was grossly normal. There is unobstructed flow of contrast through the esophagus into the stomach. No obstructing mass, stricture or diverticulum is seen. A 12 mm tablet passed promptly from the esophagus into the stomach without stasis. IMPRESSION: Unremarkable exam.
== END 2019-10-10 08:49 | disposition home or self-care (01) ==
LOC: RAD 08:48
PROVIDERS: ATTEND Specialist
DX: R13.10 Dysphagia, unspecified (principal)
CPT/HCPCS: 74220

== ENCOUNTER 2019-10-26 10:45 | Outpatient (CLI) | payer MEDICARE ==
--- NOTE | 2019-10-29 10:56 | RAD ---
MODIFIED BARIUM SWALLOW IN THE PRESENCE OF SPEECH PATHOLOGIST: EXPOSURE: 30 seconds. 0.48 mGy*^m2. HISTORY: Dysphagia following cerebrovascular disease. Dysphagia, unspecified. Feeding difficulties. FINDINGS: In the presence of a speech pathologist, the patient was administered nectar thick, thin liquid, pure e and regular texture food. Barium tablet was also administered. There is flash penetration. Delay in passage of the barium tablet. IMPRESSION: Please refer to speech pathologist report for feeding recommendation. Transcribed Date/Time: 10/29/2019 11:19 AM
== END 2019-10-26 10:46 | disposition home or self-care (01) ==
PROVIDERS: ATTEND Specialist
DX: I69.891 Dysphagia following other cerebrovascular disease (principal); R13.10 Dysphagia, unspecified; R63.3 Feeding difficulties
CPT/HCPCS: 74230

== ENCOUNTER 2020-09-11 08:47 | Outpatient (CLI) | payer MEDICARE ==
--- NOTE | 2020-09-12 13:28 | MMO ---
Bilateral MAMMO Bilat Screen DDI+DA. CLINICAL HISTORY: Patient is 75 years old and is seen for screening. The patient has no family history of breast cancer. The patient has no personal history of cancer. The patient has a history of left needle biopsy - benign. VIEWS: The views performed were: bilateral craniocaudal with tomosynthesis and bilateral mediolateral oblique with tomosynthesis. FILMS COMPARED: The present examination has been compared to prior imaging studies performed at [facility] on 04/10/2013, 04/25/2014 and 05/23/2015. This study has been interpreted with the assistance of computer-aided detection. MAMMOGRAM FINDINGS: There are scattered fibroglandular densities. There are no suspicious masses, suspicious calcifications, or new areas of architectural distortion. IMPRESSION: THERE IS NO MAMMOGRAPHIC EVIDENCE OF MALIGNANCY. A ROUTINE FOLLOW-UP MAMMOGRAM IN 1 YEAR IS RECOMMENDED. THE RESULTS OF THIS EXAM WERE SENT TO THE PATIENT. ACR BI-RADS Category 1 - Negative MAMMOGRAPHY NOTE: 1. A negative mammogram report should not delay a biopsy if a dominant of clinically suspicious mass is present. 2. Approximately 10% to 15% of breast cancers are not detected by mammography. 3. Adenosis and dense breasts may obscure an underlying neoplasm. Reported by: JAKE REYES MD Electonically Signed: [id number]
== END 2020-09-11 08:48 | disposition home or self-care (01) ==
LOC: BICMAMMO 08:47
PROVIDERS: ATTEND Family Medicine
DX: Z12.31 Encounter for screening mammogram for malignant neoplasm of breast (principal); Z91.89 Other specified personal risk factors, not elsewhere classified
CPT/HCPCS: 77063; 77067

== ENCOUNTER 2020-09-24 15:34 | Inpatient (IN) | payer MEDICARE ==
[2020-09-24] MEDS ORDERED: methylPREDNISolone Sod Succ 40 MG VIAL ONE (16:33)
[2020-09-24 16:37] LABS: #Monocytes 0.3 thou/uL (0.11-0.59); #Neutrophils 8.5 thou/uL (1.40-6.50); %Basophils 0.1 % (0.0-1.0); %Eosinophils 0.2 % (0.0-10.0); %Monocytes 2.9 % (0.0-10.0); %Neutrophils 86.8 % (42.0-75.0); Hemoglobin 14.4 g/dL (12.0-16.0); Mean Corpuscular HGB CONC 32.1 g/dL (32.0-36.0); Mean Corpuscular Hemoglobin 30.3 pg (27.0-31.0); Mean Corpuscular Volume 94.2 fL (78.0-98.0); Mean Platelet Volume 6.5 fL (7.4-10.4); Platelet Count 377 thou/uL (130-400); RBC Distribution Width 12.5 % (11.5-14.5); Red Blood Cell (RBC) Count 4.77 mill/uL (4.20-5.40); White Blood Cell (WBC) Count 9.8 thou/uL (4.8-10.8)
[2020-09-24] MEDS ORDERED: OCTAGAM 10% 30 GM in Admixture Fee 1 EACH IVPB SCH (16:45)
[2020-09-24 16:46] LABS: Bacteria/HPF None Seen HPF (None Seen); Bilirubin Negative (Negative); Blood, Urine Trace (Negative); Clarity Clear (Clear); Glucose, Urine (Dipstick) Normal (Negative); Ketone, Urine 40 mg/dL (Negative); Leukocyte Negative Leu/uL (Negative); Nitrite Negative (Negative); Protein, Urine (Dipstick) Negative (Neg-Trace); RBC/HPF 0-3 HPF (0-3); Specific Gravity, Urine 1.029 (1.002-1.036); Squamous Epithelial 0-3 HPF (0-3); WBC/HPF 0-3 HPF (0-3)
[2020-09-24 16:59] LABS: ALT (SGPT) 27 U/L (8-55); AST (SGOT) 36 U/L (5-34); Albumin 4.3 g/dL (3.4-4.8); Alkaline Phosphatase 57 U/L (40-110); Anion Gap 16 mmol/L (10-20); BUN (Urea Nitrogen) 32 mg/dL (9.8-20.1); Bilirubin, Total 0.7 mg/dL (0.2-1.2); CK (CPK) 83 U/L (29-168); Calc. Creatinine Clearance 0 mL/min (70-130); Calcium 9.8 mg/dL (7.8-10.44); Carbon Dioxide 25 mmol/L (23-31); Chloride 105 mmol/L (98-107); Globulin 3.4 g/dL (2.4-3.5); Glucose 112 mg/dL (83-110); Potassium 4.2 mmol/L (3.5-5.1); Protein, Total 7.7 g/dL (6.0-8.3); Sodium 142 mmol/L (136-145)
--- NOTE | 2020-09-24 18:32 | HP ---
PRIMARY CARE PHYSICIAN: Dr. Gonsalez. CHIEF COMPLAINT: Dysphagia and dysarthria. HISTORY OF PRESENT ILLNESS: This is a 75-year-old white female, who was diagnosed in December of this year with myasthenia gravis. The patient has been seeing Dr. Carmen as an outpatient. She is currently on pyridostigmine and prednisone. For the last 2 to 3 weeks, she has had a flare of her symptoms. Her symptoms are mostly bulbar in origin. She did originally have some ptosis of her eyelids; however, this resolved with starting the pyridostigmine. She has had a lot of fatigue of her jaw muscles, a lot of trouble chewing, some dysarthria, and then progressive dysphagia over the last few days. The patient had her medications increased by Dr. Carmen as an outpatient and went into the emergency room for some IV fluids a couple days ago. However, she has had progressive worsening of her symptoms and so [facility] Emergency room physician spoke with Dr. Salinas, who ordered IVIG to be given now and then daily for another 2 days for a total of 3 IVIG doses and the patient is being admitted to the hospital. The patient denies any respiratory symptoms at all, maybe a little bit of proximal upper extremity weakness in her shoulders. REVIEW OF SYSTEMS: CONSTITUTIONAL: No fevers, no chills. She has had a 20 to 30 pounds weight loss over the last few weeks. EYES: No double vision or blurred vision. ENT: She has had some runny nose. She had a little bit of throat pain when she tried to swallow some thickened liquids, they did not go down right the other day, but no other throat symptoms. CARDIOVASCULAR: No chest pain. She did have some palpitations the other night when her blood pressure went up and she had trouble taking her medicines, none currently. PULMONARY: No coughing, wheezing, or shortness of breath. No respiratory muscle weakness. GASTROINTESTINAL: No abdominal pain. No nausea or vomiting. No diarrhea or constipation. GENITOURINARY: No dysuria or hematuria. She does have chronic incontinence that she has had for many years. MUSCULOSKELETAL: No muscle aches or joint pain. SKIN: No rashes or lesions noted. NEUROLOGIC: No numbness, tingling, or focal weakness besides what is in the HPI. PAST MEDICAL HISTORY: 1. Myasthenia gravis diagnosed in 2019. 2. Hypertension. 3. Hyperlipidemia. 4. Gastroesophageal reflux disease with previous hiatal hernia. 5. Obesity. 6. Liver abscess in 2007, treated with IV antibiotics. 7. Irritable bowel syndrome. 8. Osteoarthritis. 9. Diverticulosis. PAST SURGICAL HISTORY: 1. Cholecystectomy. 2. Hiatal hernia repair. 3. Tonsillectomy. 4. Right hip replacement. 5. Left breast biopsy. SOCIAL HISTORY: No tobacco, alcohol, or illicit drug use. 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 She is a full code. Should she be incapacitated, her daughter would be her medical decision maker. Her daughter is present at the bedside, her name is Camille Walker. FAMILY HISTORY: Mother had recurrent lower extremity phlebitis after a hysterectomy when she was younger and then had a heart attack when she was in her 70s. No autoimmune diseases or myasthenia gravis that runs in the family. ALLERGIES: SULFA. CURRENT MEDICATIONS: 1. Lisinopril 10 mg daily. 2. Pyridostigmine 60 mg tablets 1-1/2 tablets 4 times a day. 3. Prednisone 30 mg daily. PHYSICAL EXAMINATION: VITAL SIGNS: Blood pressure 188/86, pulse 73, respirations 16, temperature 98.1, O2 saturation 98% on room air. GENERAL: This is a well-developed, well-nourished white female, in no acute distress, but with significant dysarthria. HEENT: Pupils equal, round, and reactive to light. No visible ptosis at this time. She has conjugate gaze. Oropharynx clear without lesions, erythema, or exudate. She does have some sagging of the anterior tonsillar pillar area and right side of the uvula on the right compared to the left and she has some discoordination of her tongue when she is trying to move it around. NECK: Supple. No lymphadenopathy. No thyroid nodules or enlargement. No JVD. HEART: Regular rate and rhythm. No murmurs, rubs, or gallops. LUNGS: Clear to auscultation bilaterally. No wheezes, crackles, or rhonchi. She has good respiratory effort. ABDOMEN: Soft, nontender to palpation. Normoactive bowel sounds. No hepatosplenomegaly or other masses. EXTREMITIES: No clubbing, cyanosis, or edema. SKIN: No rashes or other lesions noted. NEUROLOGIC: The patient has intact strength and sensation in all of her 4 extremities and normal reflexes. She does have discoordination of her tongue, her lips, and her throat with swallowing, but otherwise without focal neurologic deficits. PSYCHIATRIC: Alert and oriented x3. Normal mood and affect. LABORATORY DATA: CBC grossly within normal limits. Complete metabolic panel notable for BUN of 32 and creatinine of 1.17, which is down from 1.32, which it was when she came in for IV fluids 2 days ago. Glucose of 112. AST was 36. The rest of the CMP was normal. Urinalysis was negative for infection. IMAGING STUDIES: Chest x-ray, I did review the chest x-ray done in the emergency room along with the radiologist's report, it shows no acute cardiopulmonary process. ASSESSMENT: 1. Myasthenia gravis with acute flare. We will give IVIG. She is getting her 1st dose today and then will get a total of 3 doses of IVIG in the hospital. We will consult Dr. Salinas to continue following. The patient will need to be admitted to the Stroke Unit and have q.2 hours neuro checks. We will continue her pyridostigmine and her steroids at her current dose as per Dr. Salinas's instructions. 2. Oropharyngeal dysphagia. We will make the patient n.p.o. for now. We will have speech therapy evaluate her. We will give her IV fluids, D5 half-normal saline with potassium to supplement her while we are waiting to wake her and feed her. If she is not able to eat safely soon, then we can always start some PPN or may need to discuss possible need for tube placement for feeding in the future. 3. Hypertension. We will give patient IV as needed blood pressure medications and we will restart her oral antihypertensives as soon as she can swallow safely. 4. Hyperlipidemia. The patient is unable to take statins. 5. Gastroesophageal reflux disease. We will put the patient on Pepcid twice a day for IV for prophylaxis. 6. Deep venous thrombosis prophylaxis. The patient on Lovenox subcu. 7. Code status. The patient is a full code. Should she be incapacitated, her daughter would be her medical decision maker. 8. Acute renal failure. Will hydrate with IV fluids and monitor closely. Job ID: [id number] [facility]
--- NOTE | 2020-09-24 18:51 | RAD ---
EXAM: CHEST ONE VIEW PORTABLE: 09/24/20 HISTORY: Shortness of breath. COMPARISON: 07/31/08. Comparison chest CT 02/07/20. FINDINGS: There is some blunting of the left costophrenic angle although this does not appear significantly gracia nged from 02/07/20 CT. Heart size is within normal limits. The lungs appear clear of acute process. IMPRESSION: Probable stable blunting left costophrenic angle. No evidence for other significant acute intrathorac ic disease. POS: OFF
[2020-09-24] MEDS ORDERED: Senokot S 8.6-50 MG TAB PO PRN (20:37)
[2020-09-24] MEDS ORDERED: Labetalol HCl 100 MG/20 ML VIAL SLOW IVP PRN (20:37)
[2020-09-24] MEDS ORDERED: Guaifenesin DM 100-10/5 ML UDCUP PO PRN (20:37)
[2020-09-24] MEDS ORDERED: Ondansetron PF 4 MG/2 ML Vial IVP PRN (20:37)
[2020-09-24] MEDS ORDERED: Acetaminophen 650 MG Suppository PR PRN (20:37)
[2020-09-24] MEDS: D5 1/2 NS w/20 mEq KCL 1,000 ML IV SCH (22:07)
[2020-09-25] MEDS: hydrALAZINE 20 MG/ML VIAL SLOW IVP PRN ×2 (00:07→22:32)
[2020-09-25 01:11] VITALS: BMI 29.9
[2020-09-25 03:15] LABS: SARS-CoV-2 MS2 Positive; SARS-CoV-2 N Gene Negative; SARS-CoV-2 S Gene Negative; SARS-CoV-2 by NAA Not Detected (NotDetected); SARS-CoV-2 orf1ab Negative
[2020-09-25] MEDS: Pyridostigmine Bromide IR 60 MG TAB PO SCH ×5 (03:39→21:02)
[2020-09-25 05:36] LABS: #Lymphocytes 0.7 thou/uL (1.20-3.40); #Monocytes 0.4 thou/uL (0.11-0.59); #Neutrophils 3.9 thou/uL (1.40-6.50); %Basophils 0.1 % (0.0-1.0); %Eosinophils 0.1 % (0.0-10.0); %Lymphocytes 13.6 % (21.0-51.0); %Monocytes 7.8 % (0.0-10.0); %Neutrophils 78.4 % (42.0-75.0); Hemoglobin 14.1 g/dL (12.0-16.0); Mean Corpuscular HGB CONC 33.4 g/dL (32.0-36.0); Mean Corpuscular Hemoglobin 31.5 pg (27.0-31.0); Mean Corpuscular Volume 94.4 fL (78.0-98.0); Mean Platelet Volume 6.7 fL (7.4-10.4); Platelet Count 272 thou/uL (130-400); RBC Distribution Width 12.5 % (11.5-14.5); Red Blood Cell (RBC) Count 4.46 mill/uL (4.20-5.40)
[2020-09-25 05:50] LABS: Anion Gap 14 mmol/L (10-20); BUN (Urea Nitrogen) 28 mg/dL (9.8-20.1); Calc. Creatinine Clearance 66 mL/min (70-130); Calcium 8.9 mg/dL (7.8-10.44); Carbon Dioxide 23 mmol/L (23-31); Chloride 106 mmol/L (98-107); Glucose 141 mg/dL (83-110); Potassium 4.1 mmol/L (3.5-5.1); Sodium 139 mmol/L (136-145)
--- NOTE | 2020-09-25 09:15 | PDOC.HOSPP ---
- Subjective Encounter Date: 09/25/20 Encounter Time: 09:14 Subjective: Patient was seen and examined in bed. She denies any improvement with her symptoms with ongoing difficulty swallowing and talking. She however denies any chest pain or shortness of breath fevers. She had IVIG yesterday. - Objective Vital Signs & Weight: Vital Signs (12 hours) Temp Pulse Resp BP Pulse Ox 09/25/20 08:00 97.6 F 67 16 163/71 H 96 09/25/20 03:50 97.5 F L 62 20 154/70 H 97 09/25/20 00:07 55 L 09/25/20 00:00 97.5 F L 55 L 16 202/77 H 97 Weight Weight 174 lb 11.2 oz I&O: 09/24/20 09/25/20 09/26/20 06:59 06:59 06:59 Intake Total 664 Output Total 5 Balance 659 Result Diagrams: 09/26/20 06:47 09/26/20 06:47 Hospitalist ROS - Review of Systems All other systems reviewed; all pertinent +/- noted in HPI/Subj - Medication Medications: Active Medications Generic Name Dose Route Start Last Admin Trade Name Freq PRN Reason Stop Dose Admin Hydralazine HCl 10 mg 09/24/20 20:37 09/25/20 00:07 Hydralazine 20 Mg/Ml Vial SLOW IVP 10 mg Q4H PRN Administration SBP Greater Than 180 Potassium Chloride/Dextrose/Sod Cl 1,000 mls @ 75 mls/hr 09/24/20 20:37 09/24/20 22:07 D5 1/2 Ns W/20 Meq Kcl IV 1,000 mls .[id number] ROSARIO Administration Pyridostigmine [place] 90 mg 09/24/20 21:00 09/25/20 03:39 Pyridostigmine [place] Ir 60 Mg Tab PO Not Given QID ROSARIO - Exam General Appearance: awake alert General - other findings: In no acute distress ENT: normocephalic atraumatic, moist mucosa Heart: RRR, no murmur, no gallops, no rubs Respiratory: CTAB, no wheezes, no rales, no ronchi Gastrointestinal: soft, non-tender, non-distended, normal bowel sounds Extremities: no cyanosis, no clubbing, no edema Neurological: no weakness, speech deficit Psychiatric: normal affect, A&O x 3 Hosp A/P - Plan This is a 75-year-old male patient history of myasthenia gravis admitted on account of exacerbation of myasthenic crisis. Myasthenic crisis. Received IVIG a day ago Continue repeated dose today. No significant improvement in symptoms however. Continue pyridostigmine and steroids Continue close monitoring. Oropharyngeal dysphagia Currently n.p.o. for speech therapy evaluation. Continue D5 NS for now. Hypertension Not well controlledsystolic in the 160s. Home lisinopril held on account of ANA MARÍA on presentation. We will continue as needed Hydralazine monitor blood pressures for now. Hyperlipidemia GERD IV Pepcid on board for prophylaxis. ANA MARÍA Noted at presentation Resolved We will hold lisinopril for today Monitor BMP. VT prophylaxisLovenox CODE STATUSfull code
[2020-09-25] MEDS: predniSONE 20 MG TAB PO SCH (09:36)
[2020-09-25] MEDS: Enoxaparin Sodium 40 MG/0.4 ML SYRINGE SC SCH (09:44)
[2020-09-25] MEDS: D5 1/2 NS w/20 mEq KCL 1,000 ML IV SCH (11:11)
[2020-09-25] MEDS ORDERED: methylPREDNISolone Sod Succ 40 MG VIAL IVP SCH (11:45)
--- NOTE | 2020-09-25 12:25 | CON ---
NEUROLOGY CONSULTATION DATE OF CONSULTATION: 09/25/2020 REASON FOR CONSULTATION: Myasthenia gravis exacerbation. HISTORY OF PRESENT ILLNESS: Ms. Graff is a 75-year-old female with medical history significant for newly-diagnosed myasthenia gravis, followed by Dr. Carmen as outpatient, presented with worsening dysphagia and dysarthria. The patient is currently on prednisone and pyridostigmine, but since the last 2-3 weeks, she has exacerbation of her symptoms characterized by ptosis of the eyelids, which was resolved and progressive dysphagia over the next the last few days to the extent where she was unable to swallow anything, so she decided to come to the emergency room for further evaluation. The patient denies any shortness of breath, nausea, vomiting, headache, chest pain, focal weakness, focal paresthesias, but does complain of generalized weakness and problems with swallowing. She denies any recent illness or recent exposure to COVID 19. REVIEW OF SYSTEMS: All systems reviewed and were negative except the pertinent positives and negatives mentioned in the HPI. PAST MEDICAL HISTORY: Myasthenia gravis diagnosed in 2019, hypertension, hyperlipidemia, gastroesophageal reflux disease with previous hiatal hernia, obesity, liver abscess in 2007 treated with intravenous antibiotics, irritable bowel syndrome, osteoarthritis, diverticulitis. PAST SURGICAL HISTORY: Cholecystectomy, hiatal hernia repair, tonsillectomy, right hip replacement, left breast biopsy. 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 The patient denies smoking, alcohol, illegal drug use. FAMILY HISTORY: Her family history is significant for mother had recurrent lower extremity phlebitis after hysterectomy and heart attack in the 70s. No history of myasthenia gravis or autoimmune disease in the family. ALLERGIES: SULFA DRUGS. CURRENT MEDICATIONS: 1. Lisinopril 10 mg daily. 2. Pyridostigmine 60 mg tablets, 1-1/2 tablet four times a day. 3. Prednisone 30 mg daily. Vital Signs & Weight: Vital Signs (12 hours) Temp Pulse Resp BP Pulse Ox 09/25/20 08:00 97.6 F 67 16 163/71 H 96 09/25/20 03:50 97.5 F L 62 20 154/70 H 97 09/25/20 00:07 55 L 09/25/20 00:00 97.5 F L 55 L 16 202/77 H 97 Weight Weight 174 lb 11.2 oz I&O: 09/24/20 09/25/20 09/26/20 06:59 06:59 06:59 Intake Total 664 Output Total 5 Balance 659 Generic Name Dose Route Start Last Admin Trade Name Peteq PRN Reason Stop Dose Admin Hydralazine HCl 10 mg 09/24/20 20:37 09/25/20 00:07 Hydralazine 20 Mg/Ml Vial SLOW IVP 10 mg Q4H PRN Administration SBP Greater Than 180 Potassium Chloride/Dextrose/Sod Cl 1,000 mls @ 75 mls/hr 09/24/20 20:37 09/24/20 22:07 D5 1/2 Ns W/20 Meq Kcl IV 1,000 mls .[id number] ROSARIO Administration Pyridostigmine [place] 90 mg 09/24/20 21:00 09/25/20 03:39 Pyridostigmine [place] Ir 60 Mg Tab PO Not Given QID ROSARIO PHYSICAL EXAMINATION: General Appearance: awake alert General - other findings: In no acute distress ENT: normocephalic atraumatic, moist mucosa Heart: RRR, no murmur, no gallops, no rubs Respiratory: CTAB, no wheezes, no rales, no ronchi Gastrointestinal: soft, non-tender, non-distended, normal bowel sounds Extremities: no cyanosis, no clubbing, no edema Neurological: es have significant dysarthria. Cranial nerves; she does have weakness of the orbicularis. She does have ptosis. The pertinent positives include bilateral ptosis, weakness of the orbicularis auris and orbicularis oculi. Generalized weakness, 4/5 bilaterally, but no focal weakness. Sensory intact. Cerebellar, finger-nose testing intact. Gait deferred due to patient's safety reasons. DATA REVIEWED: I reviewed the labs which were essentially unremarkable. Chest x-ray did not reveal any acute cardiopulmonary process. ASSESSMENT AND PLAN: Ms. Alize Graff is a 75-year-old female, who presented with myasthenia gravis exacerbation characterized by dysarthria and significant dysphagia. Continue IVIG total 0.4 g/kg for 3 days. Today is day #2. The patient has significant dysphagia and has not cleared by Speech, so considered switching prednisone to 40 mg Solu-Medrol IV daily. The patient is also on Mestinon, which needs to be continued to avoid further decline. Consider NG tube option. N.p.o. until cleared by Speech. Continue close monitoring of respiratory function including negative inspiratory pressure by every 2 hours by Respiratory therapy. If there is concern about decline, she should be transferred to IMCU or CCU for higher level of care. Neuro checks every 2 hours. Continue medical management per primary team. Plan discussed in detail with the patient, daughter at bedside, speech therapist and with the nursing staff. We will continue to follow. Thank you for the consult. Job ID: [id number] [facility]
--- NOTE | 2020-09-25 13:46 | RAD ---
KUB: 09/25/20 HISTORY: Evaluate Dobhoff tube placement. FINDINGS: There is a new Dobhoff feeding tube with distal tip overlying the superior aspect of the left upper q uadrant, likely in the region of gastric fundus or proximal body. The lung parenchyma demonstrates mi ld diffuse increase in interstitial density. There are postoperative clips in the right upper quadran t. IMPRESSION: Dobhoff tube terminating in the upper aspect of the left upper quadrant. POS: SANDRA
[2020-09-25] MEDS ORDERED: OCTAGAM 10% (10 GM/100 ML VIAL) IVPB SCH (17:45)
[2020-09-25] MEDS: OCTAGAM 10% 30 GM in Admixture Fee 1 EACH IVPB SCH (22:28)
[2020-09-26] MEDS: D5 1/2 NS w/20 mEq KCL 1,000 ML IV SCH ×2 (01:07→20:21)
[2020-09-26 07:01] LABS: #Lymphocytes 1.6 thou/uL (1.20-3.40); #Monocytes 0.9 thou/uL (0.11-0.59); #Neutrophils 5.5 thou/uL (1.40-6.50); %Basophils 0.4 % (0.0-1.0); %Eosinophils 0.4 % (0.0-10.0); %Lymphocytes 19.3 % (21.0-51.0); %Monocytes 11.5 % (0.0-10.0); %Neutrophils 68.4 % (42.0-75.0); Hemoglobin 14.3 g/dL (12.0-16.0); Mean Corpuscular HGB CONC 33.1 g/dL (32.0-36.0); Mean Corpuscular Hemoglobin 31.5 pg (27.0-31.0); Mean Corpuscular Volume 95.2 fL (78.0-98.0); Mean Platelet Volume 6.6 fL (7.4-10.4); Platelet Count 268 thou/uL (130-400); RBC Distribution Width 12.6 % (11.5-14.5); Red Blood Cell (RBC) Count 4.53 mill/uL (4.20-5.40)
[2020-09-26 07:20] LABS: Anion Gap 13 mmol/L (10-20); BUN (Urea Nitrogen) 24 mg/dL (9.8-20.1); Calc. Creatinine Clearance 65 mL/min (70-130); Calcium 8.6 mg/dL (7.8-10.44); Carbon Dioxide 23 mmol/L (23-31); Chloride 105 mmol/L (98-107); Glucose 110 mg/dL (83-110); Sodium 137 mmol/L (136-145)
[2020-09-26] MEDS: Pyridostigmine Bromide IR 60 MG TAB PO SCH ×4 (09:53→20:21)
[2020-09-26] MEDS: predniSONE 20 MG TAB PO SCH (09:53)
[2020-09-26] MEDS: Enoxaparin Sodium 40 MG/0.4 ML SYRINGE SC SCH (09:54)
[2020-09-26] MEDS: methylPREDNISolone Sod Succ 40 MG VIAL IVP SCH (09:54)
[2020-09-26] MEDS: Famotidine/PF 20 mg/2ml Vial SLOW IVP SCH ×2 (09:54→20:22)
--- NOTE | 2020-09-26 14:30 | PDOC.NEUPN ---
- Subjective Encounter Date: 09/26/20 Subjective: Ms. Jha continues to have problems with swallowing. However ptosis and speech is much improved since yesterday. - Objective Vital Signs & Weight: Vital Signs (12 hours) Temp Pulse Ox 09/26/20 11:07 98.8 F 09/26/20 08:00 98 09/26/20 07:28 98.0 F 09/26/20 04:00 98.2 F Weight Admit Weight 174 lb 11.2 oz Weight 174 lb 11.2 oz Most Recent Monitor Data Heart Rate from ECG 71 NIBP 157/73 NIBP BP-Mean 101 Respiration from ECG 17 SpO2 97 I&O: 09/25/20 09/26/20 09/27/20 06:59 06:59 06:59 Intake Total 2106 Output Total 305 Balance 1801 Result Diagrams: 09/26/20 06:47 09/26/20 06:47 Radiology Reviewed by me: Yes EKG Reviewed by me: Yes ROS - Review of Systems Constitutional: denies: fever, chills, sweats, weakness, malaise, other Eyes: denies: pain, vision change, conjunctivae inflammation, eyelid inflammation, redness, other ENT: denies: ear pain, ear discharge, nose pain, nose discharge, nose congestion, mouth pain, mouth swelling, throat pain, throat swelling, other Respiratory: denies: cough, dry, shortness of breath, hemoptysis, SOB with excertion, pleuritic pain, sputum, wheezing, other Gastrointestinal: denies: nausea, vomiting, abdominal pain, diarrhea, constipation, melena, hematochezia, other Genitourinary: denies: dysuria, frequency, incontinence, hematuria, retention, other Musculoskeletal: denies: neck pain, shoulder pain, arm pain, back pain, hand pain, leg pain, foot pain, other All Systems: All other systems reviewed; all pertinent +/- noted in HPI/Subj - Medication Medications: Active Medications Generic Name Dose Route Start Last Admin Trade Name Freq PRN Reason Stop Dose Admin Enoxaparin Sodium 40 mg 09/25/20 09:00 09/26/20 09:54 Enoxaparin Sodium 40 Mg/0.4 Ml Syringe SC 40 mg 0900 ROSARIO Administration Famotidine 20 mg 09/26/20 09:00 09/26/20 09:54 Famotidine/Pf 20 Mg/2ml Vial SLOW IVP 20 mg Q12HR ROSARIO Administration Hydralazine HCl 10 mg 09/24/20 20:37 09/25/20 22:32 Hydralazine 20 Mg/Ml Vial SLOW IVP 10 mg Q4H PRN Administration SBP Greater Than 180 Potassium Chloride/Dextrose/Sod Cl 1,000 mls @ 75 mls/hr 09/24/20 20:37 09/26/20 01:07 D5 1/2 Ns W/20 Meq Kcl IV 1,000 mls .[id number] ROSARIO Administration Immune Globulin 30 gm/ 300 mls @ 0 mls/hr 09/25/20 20:00 09/25/20 22:28 Miscellaneous Medication IVPB 09/26/20 20:01 300 mls 2000 ROSARIO Administration As Directed Methylprednisolone Sodium Succinate 40 mg 09/26/20 09:00 09/26/20 09:54 Methylprednisolone Sod Succ 40 Mg Vial IVP 40 mg DAILY ROSARIO Administration Prednisone 30 mg 09/25/20 08:00 09/26/20 09:53 Prednisone 20 Mg Tab PO 30 mg QAM-WM ROSARIO Administration Pyridostigmine [place] 90 mg 09/24/20 21:00 09/26/20 09:53 Pyridostigmine [place] Ir 60 Mg Tab PO 90 mg QID ROSARIO Administration Sodium Chloride 10 ml 09/25/20 21:00 09/26/20 12:12 Flush - Normal Saline 10 Ml Syringe IVF Not Given Q12HR ROSARIO Sodium Chloride 10 ml 09/25/20 10:00 09/26/20 09:55 Flush - Normal Saline 10 Ml Syringe IVF 10 ml PRN PRN Administration Saline Flush - Exam General Appearance: awake alert Eye: PERRL ENT: normocephalic atraumatic Neck: supple Respiratory: CTAB Cardiovascular: RRR Gastrointestinal: soft Extremities: no cyanosis Skin: normal turgor Neurological: no new deficit Musculoskeletal: generalized weakness PSYCH: normal affect, normal behavior, A&O x 3 Results - Labs Result Diagrams: 09/26/20 06:47 09/26/20 06:47 Lab results: WBC 8.0 thou/uL (4.8-10.8) 09/26/20 06:47 Hgb 14.3 g/dL (12.0-16.0) 09/26/20 06:47 Hct 43.1 % (36.0-47.0) 09/26/20 06:47 MCV 95.2 fL (78.0-98.0) 09/26/20 06:47 Plt Count 268 thou/uL (130-400) 09/26/20 06:47 Neutrophils % 68.4 % (42.0-75.0) 09/26/20 06:47 Sodium 137 mmol/L (136-145) 09/26/20 06:47 Potassium 4.0 mmol/L (3.5-5.1) 09/26/20 06:47 Chloride 105 mmol/L (98-107) 09/26/20 06:47 Carbon Dioxide 23 mmol/L (23-31) 09/26/20 06:47 BUN 24 mg/dL (9.8-20.1) H 09/26/20 06:47 Creatinine 0.95 mg/dL (0.6-1.1) 09/26/20 06:47 Glucose 110 mg/dL (83-110) 09/26/20 06:47 Calcium 8.6 mg/dL (7.8-10.44) 09/26/20 06:47 Total Bilirubin 0.7 mg/dL (0.2-1.2) 09/24/20 16:21 AST 36 U/L (5-34) H 09/24/20 16:21 ALT 27 U/L (8-55) 09/24/20 16:21 Alkaline Phosphatase 57 U/L (40-110) 09/24/20 16:21 Creatine Kinase 83 U/L (29-168) 09/24/20 16:21 Serum Total Protein 7.7 g/dL (6.0-8.3) 09/24/20 16:21 Albumin 4.3 g/dL (3.4-4.8) 09/24/20 16:21 Urine Ketones 40 mg/dL (Negative) A 09/24/20 16:19 Urine Blood Trace (Negative) A 09/24/20 16:19 Urine Nitrite Negative (Negative) 09/24/20 16:19 Ur Leukocyte Esterase Negative Tomasa/uL (Negative) 09/24/20 16:19 Urine RBC 0-3 HPF (0-3) 09/24/20 16:19 Urine WBC 0-3 HPF (0-3) 09/24/20 16:19 Ur Squamous Epith Cells 0-3 HPF (0-3) 09/24/20 16:19 Urine Bacteria None Seen HPF (None Seen) 09/24/20 16:19 PN A/P (1) Myasthenic crisis Code(s): G70.01 - MYASTHENIA GRAVIS WITH (ACUTE) EXACERBATION Status: Acute (2) status post right hip arthroplasty Status: Acute (3) Dyslipidemia Code(s): E78.5 - HYPERLIPIDEMIA, UNSPECIFIED Status: Chronic (4) HTN (hypertension) Code(s): I10 - ESSENTIAL (PRIMARY) HYPERTENSION Status: Chronic Qualifiers: Hypertension type: essential hypertension Qualified Code(s): I10 - Essential (primary) hypertension (5) Urge incontinence Code(s): N39.41 - URGE INCONTINENCE Status: Chronic - Plan Daily Plan: PT/OT, speech therapy, DVT proph w/SCDs Ms. Graff is a 75-year-old female who has been recently diagnosed with myasthenia gravis in [place] [address] Meyers who has been following her as outpatient presented with myasthenia gravis exacerbation. Patient did have improvement as far as the ptosis and speech is concerned from my assessment yesterday Continue IVIG for 3 days. Today is day #3. Neurochecks every 2 hours. Monitor closely negative inspiratory pressure by respiratory therapy. Continue Mestinon home dose. Continue via NG till patient is cleared by speech Increase Solu-Medrol to 60 mg intravenous daily. N.p.o. till cleared by speech. Continue medical management per primary team. Patient has significant oropharyngeal dysphagia . Speech therapy on board PT/OT Case discussed in detail with the patient
--- NOTE | 2020-09-26 18:43 | PDOC.HOSPP ---
- Subjective Encounter Date: 09/26/20 Subjective: Patient was seen and examined in bed. She feels a little better with better speech and less ptosis. Denied any chest pain cough shortness of breath. No significant events overnight - Objective Vital Signs & Weight: Vital Signs (12 hours) Temp Pulse Ox 09/26/20 15:41 98.4 F 09/26/20 11:07 98.8 F 09/26/20 08:00 98 09/26/20 07:28 98.0 F Weight Admit Weight 174 lb 11.2 oz Weight 174 lb 11.2 oz Most Recent Monitor Data Heart Rate from ECG 66 NIBP 170/73 NIBP BP-Mean 105 Respiration from ECG 20 SpO2 95 I&O: 09/25/20 09/26/20 09/27/20 06:59 06:59 06:59 Intake Total 2106 975 Output Total 305 500 Balance 1801 475 Result Diagrams: 09/26/20 06:47 09/26/20 06:47 Additional Labs: Accuchecks 09/26/20 17:34 POC Glucose 172 H Hospitalist ROS - Review of Systems All other systems reviewed; all pertinent +/- noted in HPI/Subj - Medication Medications: Active Medications Generic Name Dose Route Start Last Admin Trade Name Freq PRN Reason Stop Dose Admin Enoxaparin Sodium 40 mg 09/25/20 09:00 09/26/20 09:54 Enoxaparin Sodium 40 Mg/0.4 Ml Syringe SC 40 mg 0900 ROSARIO Administration Famotidine 20 mg 09/26/20 09:00 09/26/20 09:54 Famotidine/Pf 20 Mg/2ml Vial SLOW IVP 20 mg Q12HR ROSARIO Administration Hydralazine HCl 10 mg 09/24/20 20:37 09/25/20 22:32 Hydralazine 20 Mg/Ml Vial SLOW IVP 10 mg Q4H PRN Administration SBP Greater Than 180 Potassium Chloride/Dextrose/Sod Cl 1,000 mls @ 75 mls/hr 09/24/20 20:37 09/26/20 01:07 D5 1/2 Ns W/20 Meq Kcl IV 1,000 mls .[id number] ROSARIO Administration Immune Globulin 30 gm/ 300 mls @ 0 mls/hr 09/25/20 20:00 09/25/20 22:28 Miscellaneous Medication IVPB 09/26/20 20:01 300 mls 1999 ROSARIO Administration As Directed Methylprednisolone Sodium Succinate 40 mg 09/26/20 09:00 09/26/20 09:54 Methylprednisolone Sod Succ 40 Mg Vial IVP 40 mg DAILY ROSARIO Administration Prednisone 30 mg 09/25/20 08:00 09/26/20 09:53 Prednisone 20 Mg Tab PO 30 mg QAM-WM ROSARIO Administration Pyridostigmine [place] 90 mg 09/24/20 21:00 09/26/20 17:35 Pyridostigmine [place] Ir 60 Mg Tab PO 90 mg QID ROSARIO Administration Sodium Chloride 10 ml 09/25/20 21:00 09/26/20 12:12 Flush - Normal Saline 10 Ml Syringe IVF Not Given Q12HR ROSARIO Sodium Chloride 10 ml 09/25/20 10:00 09/26/20 09:55 Flush - Normal Saline 10 Ml Syringe IVF 10 ml PRN PRN Administration Saline Flush - Exam General Appearance: awake alert Heart: RRR, no murmur, no gallops, no rubs Respiratory: CTAB, no wheezes, no rales, no ronchi Gastrointestinal: soft, non-tender, non-distended, normal bowel sounds Extremities: no cyanosis, no clubbing, no edema Neurological - other findings: Slurred speech, slow expression Psychiatric: normal affect, normal behavior, A&O x 3 Hosp A/P - Plan This is a 75-year-old male patient history of myasthenia gravis admitted on account of exacerbation of myasthenia crisis. She has made some improvement with reduced dysathria and secretions Myasthenia crisis. Received 2 days of IVIG Continue repeated dose today. Slight improvement noted so far Continue on steroids/pyridostigmine Appreciate neurology input. Oropharyngeal dysphagia Currently n.p.o. for speech therapy evaluation. Continue D5 NS for now. Dobhoff tube placed a day ago Hypertension Not well controlledsystolic in the 160s. Home lisinopril held on account of ANA MARÍA on presentation. We will continue as needed hydralazine Monitor BP Hyperlipidemia GERD IV Pepcid on board for prophylaxis. ANA MARÍA Resolved VT prophylaxisLovenox CODE STATUSfull code
[2020-09-26] MEDS: OCTAGAM 10% 30 GM in Admixture Fee 1 EACH IVPB SCH (20:26)
[2020-09-26] MEDS: Acetaminophen 325 MG TAB PO PRN (20:39)
[2020-09-26] MEDS: hydrALAZINE 20 MG/ML VIAL SLOW IVP PRN (20:41)
[2020-09-27] MEDS: D5 1/2 NS w/20 mEq KCL 1,000 ML IV SCH ×2 (03:55→21:00)
[2020-09-27] MEDS: Pyridostigmine Bromide IR 60 MG TAB PO SCH ×4 (08:07→23:01)
[2020-09-27] MEDS: predniSONE 20 MG TAB PO SCH (08:07)
[2020-09-27] MEDS: Famotidine/PF 20 mg/2ml Vial SLOW IVP SCH ×2 (08:08→21:21)
[2020-09-27] MEDS: Enoxaparin Sodium 40 MG/0.4 ML SYRINGE SC SCH (08:08)
[2020-09-27] MEDS: Amlodipine 10 MG TAB PO SCH (08:08)
[2020-09-27] MEDS: methylPREDNISolone Sod Succ 40 MG VIAL IVP SCH (08:08)
[2020-09-27] MEDS: Acetaminophen 325 MG TAB PO PRN (08:22)
[2020-09-27] MEDS: Loratadine 10 MG TAB PER TUBE PRN (14:10)
--- NOTE | 2020-09-27 15:24 | PDOC.NEUPN ---
- Subjective Encounter Date: 09/27/20 Subjective: Mrs. Bonilla has mild improvement but still has significant oropharyngeal dysphagia due to myasthenia gravis exacerbation. - Objective Vital Signs & Weight: Vital Signs (12 hours) Temp Pulse BP Pulse Ox 09/27/20 15:06 98.7 F 09/27/20 11:25 98.0 F 09/27/20 08:08 63 197/80 H 09/27/20 08:00 100 09/27/20 07:09 98.3 F 09/27/20 03:37 98.4 F Weight Admit Weight 174 lb 11.2 oz Weight 174 lb 11.2 oz Most Recent Monitor Data Heart Rate from ECG 110 NIBP 120/73 NIBP BP-Mean 88 Respiration from ECG 17 SpO2 97 I&O: 09/26/20 09/27/20 09/28/20 06:59 06:59 06:59 Intake Total 2106 1735 80 Output Total 305 950 Balance 1801 785 80 Result Diagrams: 09/26/20 06:47 09/26/20 06:47 Additional Labs: Accuchecks 09/26/20 17:34 POC Glucose 172 H Radiology Reviewed by me: Yes EKG Reviewed by me: Yes ROS - Review of Systems Constitutional: denies: fever, chills, sweats, weakness, malaise, other Eyes: denies: pain, vision change, conjunctivae inflammation, eyelid inflammation, redness, other Respiratory: denies: cough, dry, shortness of breath, hemoptysis, SOB with excertion, pleuritic pain, sputum, wheezing, other Gastrointestinal: denies: nausea, vomiting, abdominal pain, diarrhea, constipation, melena, hematochezia, other Neurological: reports: weakness, change in speech - Medication Medications: Active Medications Generic Name Dose Route Start Last Admin Trade Name Freq PRN Reason Stop Dose Admin Acetaminophen 650 mg 09/24/20 20:37 09/27/20 08:22 Acetaminophen 325 Mg Tab PO 650 mg Q4H PRN Administration Headache/Fever/Mild Pain (1-3) Amlodipine Besylate 10 mg 09/27/20 09:00 09/27/20 08:08 Amlodipine 10 Mg Tab PO 10 mg DAILY ROSARIO Administration Enoxaparin Sodium 40 mg 09/25/20 09:00 09/27/20 08:08 Enoxaparin Sodium 40 Mg/0.4 Ml Syringe SC 40 mg 0900 ROSARIO Administration Famotidine 20 mg 09/26/20 09:00 09/27/20 08:08 Famotidine/Pf 20 Mg/2ml Vial SLOW IVP 20 mg Q12HR ROSARIO Administration Hydralazine HCl 10 mg 09/24/20 20:37 09/26/20 20:41 Hydralazine 20 Mg/Ml Vial SLOW IVP 10 mg Q4H PRN Administration SBP Greater Than 180 Potassium Chloride/Dextrose/Sod Cl 1,000 mls @ 75 mls/hr 09/24/20 20:37 09/27/20 03:55 D5 1/2 Ns W/20 Meq Kcl IV Not Given .[id number] ROSARIO Loratadine 10 mg 09/27/20 12:18 09/27/20 14:10 Loratadine 10 Mg Tab PER TUBE 10 mg DAILYPRN PRN Administration Allergies Methylprednisolone Sodium Succinate 40 mg 09/26/20 09:00 09/27/20 08:08 Methylprednisolone Sod Succ 40 Mg Vial IVP 40 mg DAILY ROSARIO Administration Prednisone 30 mg 09/25/20 08:00 09/27/20 08:07 Prednisone 20 Mg Tab PO 30 mg QAM-WM ROSARIO Administration Pyridostigmine [place] 90 mg 09/24/20 21:00 09/27/20 13:41 Pyridostigmine [place] 60 Mg Tab PO 90 mg QID ROSARIO Administration Sodium Chloride 10 ml 09/25/20 21:00 09/27/20 08:08 Flush - Normal Saline 10 Ml Syringe IVF 10 ml Q12HR ROSARIO Administration Sodium Chloride 10 ml 09/25/20 10:00 09/26/20 09:55 Flush - Normal Saline 10 Ml Syringe IVF 10 ml PRN PRN Administration Saline Flush - Exam General Appearance: awake alert Eye: PERRL ENT: normocephalic atraumatic Neck: supple Respiratory: CTAB Cardiovascular: RRR Gastrointestinal: soft Extremities: no cyanosis Skin: normal turgor Neurological: no new deficit Musculoskeletal: generalized weakness PSYCH: normal affect, normal behavior, A&O x 3 Results - Labs Result Diagrams: 09/26/20 06:47 09/26/20 06:47 Lab results: WBC 8.0 thou/uL (4.8-10.8) 09/26/20 06:47 Hgb 14.3 g/dL (12.0-16.0) 09/26/20 06:47 Hct 43.1 % (36.0-47.0) 09/26/20 06:47 MCV 95.2 fL (78.0-98.0) 09/26/20 06:47 Plt Count 268 thou/uL (130-400) 09/26/20 06:47 Neutrophils % 68.4 % (42.0-75.0) 09/26/20 06:47 Sodium 137 mmol/L (136-145) 09/26/20 06:47 Potassium 4.0 mmol/L (3.5-5.1) 09/26/20 06:47 Chloride 105 mmol/L (98-107) 09/26/20 06:47 Carbon Dioxide 23 mmol/L (23-31) 09/26/20 06:47 BUN 24 mg/dL (9.8-20.1) H 09/26/20 06:47 Creatinine 0.95 mg/dL (0.6-1.1) 09/26/20 06:47 Glucose 110 mg/dL (83-110) 09/26/20 06:47 Calcium 8.6 mg/dL (7.8-10.44) 09/26/20 06:47 Total Bilirubin 0.7 mg/dL (0.2-1.2) 09/24/20 16:21 AST 36 U/L (5-34) H 09/24/20 16:21 ALT 27 U/L (8-55) 09/24/20 16:21 Alkaline Phosphatase 57 U/L (40-110) 09/24/20 16:21 Creatine Kinase 83 U/L (29-168) 09/24/20 16:21 Serum Total Protein 7.7 g/dL (6.0-8.3) 09/24/20 16:21 Albumin 4.3 g/dL (3.4-4.8) 09/24/20 16:21 Urine Ketones 40 mg/dL (Negative) A 09/24/20 16:19 Urine Blood Trace (Negative) A 09/24/20 16:19 Urine Nitrite Negative (Negative) 09/24/20 16:19 Ur Leukocyte Esterase Negative [place]/uL (Negative) 09/24/20 16:19 Urine RBC 0-3 HPF (0-3) 09/24/20 16:19 Urine WBC 0-3 HPF (0-3) 09/24/20 16:19 Ur Squamous Epith Cells 0-3 HPF (0-3) 09/24/20 16:19 Urine Bacteria None Seen HPF (None Seen) 09/24/20 16:19 PN A/P (1) Myasthenic crisis Code(s): G70.01 - MYASTHENIA GRAVIS WITH (ACUTE) EXACERBATION Status: Acute (2) status post right hip arthroplasty Status: Acute (3) Dyslipidemia Code(s): E78.5 - HYPERLIPIDEMIA, UNSPECIFIED Status: Chronic (4) HTN (hypertension) Code(s): I10 - ESSENTIAL (PRIMARY) HYPERTENSION Status: Chronic Qualifiers: Hypertension type: essential hypertension Qualified Code(s): I10 - Essential (primary) hypertension (5) Urge incontinence Code(s): N39.41 - URGE INCONTINENCE Status: Chronic - Plan Daily Plan: plan discussed w/ family (Daughter at bedside), PT/OT, speech therapy, out of bed/ambulate Ms. Graff is a 75-year-old female who has been recently diagnosed with myasthenia gravis in [place] [address] Meyers who has been following her as outpatient presented with myasthenia gravis exacerbation. Patient did have improvement as far as the ptosis and speech is concerned but still has sign ificant oropharyngeal dysphagia Continue IVIG for 5 days. Today is day #4. Neurochecks every 2 hours. Monitor closely negative inspiratory pressure by respiratory therapy. Continue Mestinon home dose. Continue via NG till patient is cleared by speech. Patient has significant oropharyngeal dysphagia. Speech on board. No improvement in swallowing has been seen since admission. PEG tube option was discussed with the patient and the daughter if the dysphagia does not improve over the next few days Increase Solu-Medrol to 70 mg intravenous daily. N.p.o. till cleared by speech. Continue medical management per primary team. PT/OT Case discussed in detail with the patient, her at bedside and also with the nursing staff
--- NOTE | 2020-09-27 15:30 | PDOC.HOSPP ---
- Subjective Encounter Date: 09/27/20 Encounter Time: 08:30 Subjective: Patient seen for flareup of myasthenia gravis. She reports that she is able to raise her eyelids better. - Objective Vital Signs & Weight: Vital Signs (12 hours) Temp Pulse BP Pulse Ox 09/27/20 15:06 98.7 F 09/27/20 11:25 98.0 F 09/27/20 08:08 63 197/80 H 09/27/20 08:00 100 09/27/20 07:09 98.3 F 09/27/20 03:37 98.4 F Weight Admit Weight 174 lb 11.2 oz Weight 174 lb 11.2 oz Most Recent Monitor Data Heart Rate from ECG 110 NIBP 120/73 NIBP BP-Mean 88 Respiration from ECG 17 SpO2 97 I&O: 09/26/20 09/27/20 09/28/20 06:59 06:59 06:59 Intake Total 2106 1735 80 Output Total 305 950 Balance 1801 785 80 Result Diagrams: 09/26/20 06:47 09/26/20 06:47 Additional Labs: Accuchecks 09/26/20 17:34 POC Glucose 172 H Labs and MAR reviewed by fl Hospitalist ROS - Review of Systems ENT: reports: other (Dysphagia) Cardiovascular: reports: other (This is a significant or). denies: chest pain, palpitations, orthopnea, paroxysmal noc. dyspnea, edema, light headedness Gastrointestinal: denies: nausea, vomiting, abdominal pain, diarrhea, constipation, melena, hematochezia - Medication Medications: Active Medications Generic Name Dose Route Start Last Admin Trade Name [place] PRN Reason Stop Dose Admin Acetaminophen 650 mg 09/24/20 20:37 09/27/20 08:22 Acetaminophen 325 Mg Tab PO 650 mg Q4H PRN Administration Headache/Fever/Mild Pain (1-3) Amlodipine Besylate 10 mg 09/27/20 09:00 09/27/20 08:08 Amlodipine 10 Mg Tab PO 10 mg DAILY ROSARIO Administration Enoxaparin Sodium 40 mg 09/25/20 09:00 09/27/20 08:08 Enoxaparin Sodium 40 Mg/0.4 Ml Syringe SC 40 mg 0900 ROSARIO Administration Famotidine 20 mg 09/26/20 09:00 09/27/20 08:08 Famotidine/Pf 20 Mg/2ml Vial SLOW IVP 20 mg Q12HR ROSARIO Administration Hydralazine HCl 10 mg 09/24/20 20:37 09/26/20 20:41 Hydralazine 20 Mg/Ml Vial SLOW IVP 10 mg Q4H PRN Administration SBP Greater Than 180 Potassium Chloride/Dextrose/Sod Cl 1,000 mls @ 75 mls/hr 09/24/20 20:37 09/27/20 03:55 D5 1/2 Ns W/20 Meq Kcl IV Not Given .[id number] ROSARIO Loratadine 10 mg 09/27/20 12:18 09/27/20 14:10 Loratadine 10 Mg Tab PER TUBE 10 mg DAILYPRN PRN Administration Allergies Methylprednisolone Sodium Succinate 40 mg 09/26/20 09:00 09/27/20 08:08 Methylprednisolone Sod Succ 40 Mg Vial IVP 40 mg DAILY ROSARIO Administration Prednisone 30 mg 09/25/20 08:00 09/27/20 08:07 Prednisone 20 Mg Tab PO 30 mg QAM-WM ROSARIO Administration Pyridostigmine [place] 90 mg 09/24/20 21:00 09/27/20 13:41 Pyridostigmine [place] 60 Mg Tab PO 90 mg QID ROSARIO Administration Sodium Chloride 10 ml 09/25/20 21:00 09/27/20 08:08 Flush - Normal Saline 10 Ml Syringe IVF 10 ml Q12HR ROSARIO Administration Sodium Chloride 10 ml 09/25/20 10:00 09/26/20 09:55 Flush - Normal Saline 10 Ml Syringe IVF 10 ml PRN PRN Administration Saline Flush - Exam General Appearance: awake alert Eye: anicteric sclera ENT: normocephalic atraumatic ENT - other findings: NG tube Neck: supple Heart: RRR Respiratory: CTAB Gastrointestinal: soft, non-tender Skin: no rashes Musculoskeletal: normal tone Psychiatric: normal affect, normal behavior Hosp A/P - Plan -Assessment/plan Myasthenia crisis. Received 3 days of IVIG Mild improvement. Continue on steroids/pyridostigmine Neurology service following. Oropharyngeal dysphagia Medications per NG tube. Hypertension Controlled and stable. Hyperlipidemia GERD Stable ANA MARÍA Resolved
[2020-09-27] MEDS: OCTAGAM IVPB SCH (21:27)
[2020-09-28] MEDS: D5 1/2 NS w/20 mEq KCL 1,000 ML IV SCH ×2 (05:47→19:13)
[2020-09-28] MEDS: Pyridostigmine Bromide IR 60 MG TAB PO SCH ×4 (09:06→21:51)
[2020-09-28] MEDS: Famotidine/PF 20 mg/2ml Vial SLOW IVP SCH ×2 (09:06→21:54)
[2020-09-28] MEDS: Loratadine 10 MG TAB PER TUBE PRN (09:06)
[2020-09-28] MEDS: Amlodipine 10 MG TAB PO SCH (09:06)
[2020-09-28] MEDS: Enoxaparin Sodium 40 MG/0.4 ML SYRINGE SC SCH (09:07)
[2020-09-28] MEDS: methylPREDNISolone Sod Succ 40 MG VIAL IVP SCH (09:07)
[2020-09-28] MEDS: predniSONE 20 MG TAB PO SCH (10:23)
--- NOTE | 2020-09-28 12:44 | PDOC.NEUPN ---
- Subjective Encounter Date: 09/28/20 Subjective: Mrs. Bonilla has mild improvement in speech and ptosis but still has significant oropharyngeal dysphagia due to myasthenia gravis exacerbation. - Objective Vital Signs & Weight: Vital Signs (12 hours) Temp Pulse BP Pulse Ox 09/28/20 11:18 98.1 F 09/28/20 09:06 63 133/77 09/28/20 08:00 97 09/28/20 07:00 98.2 F 09/28/20 03:56 98.0 F Weight Admit Weight 174 lb 11.2 oz Weight 174 lb 11.2 oz Most Recent Monitor Data Heart Rate from ECG 86 NIBP 134/69 NIBP BP-Mean 90 Respiration from ECG 20 SpO2 96 I&O: 09/27/20 09/28/20 09/29/20 06:59 06:59 06:59 Intake Total 1735 960 85 Output Total 950 400 Balance 785 560 85 Result Diagrams: 09/26/20 06:47 09/26/20 06:47 Radiology Reviewed by me: Yes EKG Reviewed by me: Yes ROS - Review of Systems Constitutional: denies: fever, chills, sweats, weakness, malaise, other Eyes: denies: pain, vision change, conjunctivae inflammation, eyelid inflammation, redness, other ENT: denies: ear pain, ear discharge, nose pain, nose discharge, nose congestion, mouth pain, mouth swelling, throat pain, throat swelling, other Respiratory: denies: cough, dry, shortness of breath, hemoptysis, SOB with excertion, pleuritic pain, sputum, wheezing, other Musculoskeletal: denies: neck pain, shoulder pain, arm pain, back pain, hand pain, leg pain, foot pain, other Neurological: reports: weakness, change in speech. denies: numbness, incoordin ation, confusion, seizures, other - Medication Medications: Active Medications Generic Name Dose Route Start Last Admin Trade Name Freq PRN Reason Stop Dose Admin Acetaminophen 650 mg 09/24/20 20:37 09/27/20 08:22 Acetaminophen 325 Mg Tab PO 650 mg Q4H PRN Administration Headache/Fever/Mild Pain (1-3) Amlodipine Besylate 10 mg 09/27/20 09:00 09/28/20 09:06 Amlodipine 10 Mg Tab PO 10 mg DAILY ROSARIO Administration Enoxaparin Sodium 40 mg 09/25/20 09:00 09/28/20 09:07 Enoxaparin Sodium 40 Mg/0.4 Ml Syringe SC 40 mg 0900 ROSARIO Administration Famotidine 20 mg 09/26/20 09:00 09/28/20 09:06 Famotidine/Pf 20 Mg/2ml Vial SLOW IVP 20 mg Q12HR ROSARIO Administration Hydralazine HCl 10 mg 09/24/20 20:37 09/26/20 20:41 Hydralazine 20 Mg/Ml Vial SLOW IVP 10 mg Q4H PRN Administration SBP Greater Than 180 Potassium Chloride/Dextrose/Sod Cl 1,000 mls @ 75 mls/hr 09/24/20 20:37 09/28/20 05:47 D5 1/2 Ns W/20 Meq Kcl IV Not Given .[id number] ROSARIO Immune Globulin 30 gm/ Device 300 mls @ 0 mls/hr 09/27/20 20:00 09/27/20 21:27 IVPB 09/28/20 23:59 300 mls 2000 ROSARIO Administration As Directed Loratadine 10 mg 09/27/20 12:18 09/28/20 09:06 Loratadine 10 Mg Tab PER TUBE 10 mg DAILYPRN PRN Administration Allergies Methylprednisolone Sodium Succinate 80 mg 09/28/20 09:00 09/28/20 09:07 Methylprednisolone Sod Succ 40 Mg Vial IVP 80 mg DAILY ROSARIO Administration Pyridostigmine [place] 90 mg 09/24/20 21:00 09/28/20 09:06 Pyridostigmine [place] Ir 60 Mg Tab PO 90 mg QID ROSARIO Administration Sodium Chloride 10 ml 09/25/20 21:00 09/28/20 09:08 Flush - Normal Saline 10 Ml Syringe IVF 10 ml Q12HR ROSARIO Administration Sodium Chloride 10 ml 09/25/20 10:00 09/26/20 09:55 Flush - Normal Saline 10 Ml Syringe IVF 10 ml PRN PRN Administration Saline Flush - Exam General Appearance: awake alert Eye: PERRL ENT: normocephalic atraumatic Neck: supple Respiratory: CTAB Cardiovascular: RRR Gastrointestinal: soft Extremities: no cyanosis Skin: normal turgor Neurological: no focal deficits Musculoskeletal: generalized weakness PSYCH: normal affect, normal behavior, A&O x 3 Results - Labs Result Diagrams: 09/26/20 06:47 09/26/20 06:47 Lab results: WBC 8.0 thou/uL (4.8-10.8) 09/26/20 06:47 Hgb 14.3 g/dL (12.0-16.0) 09/26/20 06:47 Hct 43.1 % (36.0-47.0) 09/26/20 06:47 MCV 95.2 fL (78.0-98.0) 09/26/20 06:47 Plt Count 268 thou/uL (130-400) 09/26/20 06:47 Neutrophils % 68.4 % (42.0-75.0) 09/26/20 06:47 Sodium 137 mmol/L (136-145) 09/26/20 06:47 Potassium 4.0 mmol/L (3.5-5.1) 09/26/20 06:47 Chloride 105 mmol/L (98-107) 09/26/20 06:47 Carbon Dioxide 23 mmol/L (23-31) 09/26/20 06:47 BUN 24 mg/dL (9.8-20.1) H 09/26/20 06:47 Creatinine 0.95 mg/dL (0.6-1.1) 09/26/20 06:47 Glucose 110 mg/dL (83-110) 09/26/20 06:47 Calcium 8.6 mg/dL (7.8-10.44) 09/26/20 06:47 Total Bilirubin 0.7 mg/dL (0.2-1.2) 09/24/20 16:21 AST 36 U/L (5-34) H 09/24/20 16:21 ALT 27 U/L (8-55) 09/24/20 16:21 Alkaline Phosphatase 57 U/L (40-110) 09/24/20 16:21 Creatine Kinase 83 U/L (29-168) 09/24/20 16:21 Serum Total Protein 7.7 g/dL (6.0-8.3) 09/24/20 16:21 Albumin 4.3 g/dL (3.4-4.8) 09/24/20 16:21 Urine Ketones 40 mg/dL (Negative) A 09/24/20 16:19 Urine Blood Trace (Negative) A 09/24/20 16:19 Urine Nitrite Negative (Negative) 09/24/20 16:19 Ur Leukocyte Esterase Negative [place]/uL (Negative) 09/24/20 16:19 Urine RBC 0-3 HPF (0-3) 09/24/20 16:19 Urine WBC 0-3 HPF (0-3) 09/24/20 16:19 Ur Squamous Epith Cells 0-3 HPF (0-3) 09/24/20 16:19 Urine Bacteria None Seen HPF (None Seen) 09/24/20 16:19 PN A/P (1) Myasthenic crisis Code(s): G70.01 - MYASTHENIA GRAVIS WITH (ACUTE) EXACERBATION Status: Acute (2) status post right hip arthroplasty Status: Acute (3) Dyslipidemia Code(s): E78.5 - HYPERLIPIDEMIA, UNSPECIFIED Status: Chronic (4) HTN (hypertension) Code(s): I10 - ESSENTIAL (PRIMARY) HYPERTENSION Status: Chronic Qualifiers: Hypertension type: essential hypertension Qualified Code(s): I10 - Essential (primary) hypertension (5) Urge incontinence Code(s): N39.41 - URGE INCONTINENCE Status: Chronic - Plan Daily Plan: PT/OT, speech therapy, DVT proph w/SCDs Ms. Graff is a 75-year-old female who has been recently diagnosed with myasthenia gravis in December [address] Meyers who has been following her as outpatient presented with myasthenia gravis exacerbation. Patient continues to improve as far as the ptosis and speech is concerned but still has significant oropharyngeal dysphagia Continue IVIG for 5 days. Today is day #5. Neurochecks every 2 hours. Monitor closely negative inspiratory pressure by respiratory therapy. Continue Mestinon home dose. Continue via NG till patient is cleared by speech. Patient has significant oropharyngeal dysphagia. Speech on board. No improvement in swallowing has been seen since admission. PEG tube option was discussed with the patient again today if the dysphagia does not improve over the next few days. Patient wants to go home and not rehab. She cannot go home on NG. Consider GI input. Continue Solu-Medrol to 70 mg intravenous daily. N.p.o. till cleared by speech. Continue medical management per primary team. PT/OT Case discussed in detail with the patient and also with the nursing staff
--- NOTE | 2020-09-28 15:57 | PDOC.HOSPP ---
- Subjective Encounter Date: 09/28/20 Encounter Time: 14:30 Subjective: Patient seen for follow-up for myasthenia flare. Reports feeling better today. - Objective Vital Signs & Weight: Vital Signs (12 hours) Temp Pulse BP Pulse Ox 09/28/20 15:23 98.5 F 09/28/20 11:18 98.1 F 09/28/20 09:06 63 133/77 09/28/20 08:00 97 09/28/20 07:00 98.2 F 09/28/20 03:56 98.0 F Weight Admit Weight 174 lb 11.2 oz Weight 174 lb 11.2 oz Most Recent Monitor Data Heart Rate from ECG 86 NIBP 134/69 NIBP BP-Mean 90 Respiration from ECG 20 SpO2 96 I&O: 09/27/20 09/28/20 09/29/20 06:59 06:59 06:59 Intake Total 1735 960 85 Output Total 950 400 150 Balance 785 560 -65 Result Diagrams: 09/26/20 06:47 09/26/20 06:47 Additional Labs: I reviewed patient's labs and MAR EKG Reviewed by me: Yes (Normal sinus rhythm on telemetry) Hospitalist ROS - Review of Systems Cardiovascular: denies: chest pain, palpitations, orthopnea, paroxysmal noc. dyspnea, edema, light headedness Genitourinary: denies: dysuria, frequency, incontinence, hematuria, retention - Medication Medications: Active Medications Generic Name Dose Route Start Last Admin Trade Name Freq PRN Reason Stop Dose Admin Acetaminophen 650 mg 09/24/20 20:37 09/27/20 08:22 Acetaminophen 325 Mg Tab PO 650 mg Q4H PRN Administration Headache/Fever/Mild Pain (1-3) Amlodipine Besylate 10 mg 09/27/20 09:00 09/28/20 09:06 Amlodipine 10 Mg Tab PO 10 mg DAILY ROSARIO Administration Enoxaparin Sodium 40 mg 09/25/20 09:00 09/28/20 09:07 Enoxaparin Sodium 40 Mg/0.4 Ml Syringe SC 40 mg 0900 ROSARIO Administration Famotidine 20 mg 09/26/20 09:00 09/28/20 09:06 Famotidine/Pf 20 Mg/2ml Vial SLOW IVP 20 mg Q12HR ROSARIO Administration Hydralazine HCl 10 mg 09/24/20 20:37 09/26/20 20:41 Hydralazine 20 Mg/Ml Vial SLOW IVP 10 mg Q4H PRN Administration SBP Greater Than 180 Potassium Chloride/Dextrose/Sod Cl 1,000 mls @ 75 mls/hr 09/24/20 20:37 09/28/20 05:47 D5 1/2 Ns W/20 Meq Kcl IV Not Given .[id number] ROSARIO Immune Globulin 30 gm/ Device 300 mls @ 0 mls/hr 09/27/20 20:00 09/27/20 21:27 IVPB 09/28/20 23:59 300 mls 2000 ROSARIO Administration As Directed Loratadine 10 mg 09/27/20 12:18 09/28/20 09:06 Loratadine 10 Mg Tab PER TUBE 10 mg DAILYPRN PRN Administration Allergies Methylprednisolone Sodium Succinate 80 mg 09/28/20 09:00 09/28/20 09:07 Methylprednisolone Sod Succ 40 Mg Vial IVP 80 mg DAILY ROSARIO Administration Pyridostigmine [place] 90 mg 09/24/20 21:00 09/28/20 13:32 Pyridostigmine [place] Ir 60 Mg Tab PO 90 mg QID ROSARIO Administration Sodium Chloride 10 ml 09/25/20 21:00 09/28/20 09:08 Flush - Normal Saline 10 Ml Syringe IVF 10 ml Q12HR ROSARIO Administration Sodium Chloride 10 ml 09/25/20 10:00 09/26/20 09:55 Flush - Normal Saline 10 Ml Syringe IVF 10 ml PRN PRN Administration Saline Flush - Exam General Appearance: awake alert Eye: anicteric sclera ENT: no oropharyngeal lesions Neck: supple Heart: RRR Respiratory: CTAB Gastrointestinal: soft, non-tender Skin: no rashes Neurological: cranial nerve grossly intact Psychiatric: normal affect, normal behavior Hosp A/P - Plan -Assessment/plan Myasthenia crisis. Clinically improving with IVIG. Continue on steroids/pyridostigmine Neurology service following. Oropharyngeal dysphagia Medications per NG tube. Hypertension Controlled. Hyperlipidemia GERD Stable ANA MARÍA Resolved
[2020-09-28] MEDS: OCTAGAM IVPB SCH (19:14)
[2020-09-29] MEDS: Acetaminophen 325 MG TAB PO PRN (10:02)
[2020-09-29] MEDS: Pyridostigmine Bromide IR 60 MG TAB PO SCH ×4 (10:04→21:05)
[2020-09-29] MEDS: Amlodipine 10 MG TAB PO SCH (10:04)
[2020-09-29] MEDS: Famotidine/PF 20 mg/2ml Vial SLOW IVP SCH ×2 (10:04→21:05)
[2020-09-29] MEDS: Enoxaparin Sodium 40 MG/0.4 ML SYRINGE SC SCH (10:05)
[2020-09-29] MEDS: methylPREDNISolone Sod Succ 40 MG VIAL IVP SCH (10:06)
[2020-09-29] MEDS: D5 1/2 NS w/20 mEq KCL 1,000 ML IV SCH (10:06)
--- NOTE | 2020-09-29 11:36 | PDOC.PALCO ---
Palliative Care Consult - Consult Details Requesting Physician: Dr Villalobos Reason for Consult: assistance with communication prognosis/disease - Pertinent HPI 75 year old female who was diagnosed iwth Myasthenia Gravis in December 2019. Is followed by primary care physician Dr Perry and Dr Toledo neurologist. She is currently staking pyridostgmine and prednisone. She tapered her prednisone in the fall, with increase when symptoms began to exacerbate. Ptosis of bilateral eye lids, now just the left. Dyshagia which led to dehydration. Eventual presentation to the emergency room with admission and fluid resuscitation and IVIG. Speech evaluation, NG in place. - Pertinent PMH Myasthenia gravis, 2019, HTN, HDL, Obesity, GERD, IBS, Osteoarthritis. - Social History Smoking Status: Never smoker Smoking: no tobacco exposure Alcohol Use: none Drug Use History: none Living Situation: - Allergies Allergies/Adverse Reactions: Allergies Allergy/AdvReac Type Severity Reaction Status Date / Time Sulfa (Sulfonamide Allergy Hives Verified 04/05/19 08:33 Antibiotics) - Subjective Sitting on side of bed, NG in place. Tolerating thickened liquids. - ROS Constitutional: alert, loss appetite, weakness Eyes: other (Ptosis to left eye, "floaters" bilaterally) ENT: difficulty swallowing, other (excessive saliva) Respiratory: other (Denies shortness of breath, cough) Cardiology: other (denies palpitations, edema, chest pain) Gastrointestinal: other (Denies incontinence, constipation) Genitourinary: other (denies frequency, ) Musculoskeletal: arthritis/arthralgias Neurological: change in speech, weakness Skin: other (Denies puritis) - Objective Vital Signs: Vital Signs - Most Recent Temp Pulse Resp BP Pulse Ox 97.9 F 81 18 128/84 96 09/29/20 11:21 09/29/20 10:04 09/25/20 20:00 09/29/20 10:04 09/28/20 20:00 Palliative Performance Scale: 70 - Physical Exam Constitutional: NAD HEENT: moist MMs Deviation from normal: left eye Ptosis, Respiratory: clear to auscultation bilateral, no rales, no rhonchi, no wheezing, unlabored breathing Cardiovascular: no rub, no significant murmur, RRR Gastrointestinal: continent, soft, non-tender Genitourinary: continent Musculoskeletal: no clubbing Neurology: moves all 4 limbs Deviation from normal: slight speech impairment as per patient, Skin: cap refill <2 seconds, no rash Psychiatric: A&O x 3, normal affect, normal mood - Problem List (1) Palliative care encounter Code(s): Z51.5 - ENCOUNTER FOR PALLIATIVE CARE Current Visit: Yes Status: Acute (2) Dysphagia Code(s): R13.10 - DYSPHAGIA, UNSPECIFIED Current Visit: Yes Status: Acute (3) Myasthenic crisis Code(s): G70.01 - MYASTHENIA GRAVIS WITH (ACUTE) EXACERBATION Current Visit: Yes Status: Acute (4) HTN (hypertension) Code(s): I10 - ESSENTIAL (PRIMARY) HYPERTENSION Current Visit: No Status: Chronic Qualifiers: Hypertension type: essential hypertension Qualified Code(s): I10 - Essential (primary) hypertension - Plan/Recommendations Plan: Discussed myasthenia gravis with patient, she is very knowledgeable in relation to disease process. Significant concern is she is primary caregiver for her who has Dementia. Swallowing is improving, speech working with patient. Use lemon drops to mange altered taste with crushed medications. Information provided on interventions related to exacerbation of MG, specifically dysphagia. Does not desire to transition to rehab, wants to return to home setting to be with , daughter participates in care. Daughter is patient surrogate decision maker, discussed completing Directive to physician. Discussed measures to mitigate stress / both good and bad/ that can impact exacerbation of Myasthenia Gravis. Goal: Return to home setting Continue medications, crush as needed to prevent aspiration Discuss care of her with her children as disease progresses. Manage stress/good and bad to prevent exacerbation, rest more Consideration of interventions in the future if dysphagia persists. Palliative Care will sign off as Disease progression addressed, education provided. Please re consult our team as needed to revisit disease processes, goal of care, complex decision making or address directives to physician as patient desires. [75] minutes spent on this encounter with >50% of the time in counseling and coordination of care. Thank you for this very appropriate consult.
--- NOTE | 2020-09-29 11:44 | PDOC.HOSPP ---
- Subjective Encounter Date: 09/29/20 Encounter Time: 11:42 Subjective: Ms. Graff was seen today in follow-up of Myesthenia Gravis flare up. She says she feels much better. She was able to tolerate a solid diet so far. - Objective Vital Signs & Weight: Vital Signs (12 hours) Temp Pulse BP BP Pulse Ox 09/29/20 11:21 97.9 F 09/29/20 10:04 81 128/84 09/29/20 08:00 98 09/29/20 07:34 98.0 F 09/29/20 03:36 98.4 F 09/29/20 00:25 97.3 F L 09/29/20 00:00 122/77 Weight Admit Weight 174 lb 11.2 oz Weight 174 lb 11.2 oz Most Recent Monitor Data Heart Rate from ECG 99 NIBP 151/82 NIBP BP-Mean 105 Respiration from ECG 15 SpO2 98 I&O: 09/28/20 09/29/20 09/30/20 06:59 06:59 06:59 Intake Total 960 1190 Output Total 400 1150 Balance 560 40 Result Diagrams: 09/26/20 06:47 09/26/20 06:47 Hospitalist ROS - Medication Medications: Active Medications Generic Name Dose Route Start Last Admin Trade Name Freq PRN Reason Stop Dose Admin Acetaminophen 650 mg 09/24/20 20:37 09/29/20 10:02 Acetaminophen 325 Mg Tab PO 650 mg Q4H PRN Administration Headache/Fever/Mild Pain (1-3) Amlodipine Besylate 10 mg 09/27/20 09:00 09/29/20 10:04 Amlodipine 10 Mg Tab PO 10 mg DAILY ROSARIO Administration Enoxaparin Sodium 40 mg 09/25/20 09:00 09/29/20 10:05 Enoxaparin Sodium 40 Mg/0.4 Ml Syringe SC 40 mg 0900 ROSARIO Administration Famotidine 20 mg 09/26/20 09:00 09/29/20 10:04 Famotidine/Pf 20 Mg/2ml Vial SLOW IVP 20 mg Q12HR ROSARIO Administration Hydralazine HCl 10 mg 09/24/20 20:37 09/26/20 20:41 Hydralazine 20 Mg/Ml Vial SLOW IVP 10 mg Q4H PRN Administration SBP Greater Than 180 Potassium Chloride/Dextrose/Sod Cl 1,000 mls @ 75 mls/hr 09/24/20 20:37 09/29/20 10:06 D5 1/2 Ns W/20 Meq Kcl IV Not Given .[id number] ROSARIO Loratadine 10 mg 09/27/20 12:18 09/28/20 09:06 Loratadine 10 Mg Tab PER TUBE 10 mg DAILYPRN PRN Administration Allergies Methylprednisolone Sodium Succinate 80 mg 09/28/20 09:00 09/29/20 10:06 Methylprednisolone Sod Succ 40 Mg Vial IVP 80 mg DAILY ROSARIO Administration Pyridostigmine [place] 90 mg 09/24/20 21:00 09/29/20 10:04 Pyridostigmine [place] Ir 60 Mg Tab PO 90 mg QID ROSARIO Administration Sodium Chloride 10 ml 09/25/20 21:00 09/29/20 10:06 Flush - Normal Saline 10 Ml Syringe IVF 10 ml Q12HR ROSARIO Administration Sodium Chloride 10 ml 09/25/20 10:00 09/26/20 09:55 Flush - Normal Saline 10 Ml Syringe IVF 10 ml PRN PRN Administration Saline Flush - Exam Eye: PERRL, anicteric sclera ENT: normocephalic atraumatic Heart: RRR, no murmur, no gallops, no rubs, normal peripheral pulses Respiratory: CTAB, no wheezes, no rales, no ronchi, normal chest expansion, no tachypnea, normal percussion Gastrointestinal: soft, non-tender, non-distended, normal bowel sounds, no palpable masses Extremities: no cyanosis, 1+ LE edema (+ mild non-pitting edema) Hosp A/P - Plan * Myesthenia Gravis flare- she is doing much better with IVIG. She is on Prednisone 80mg a day. I spoke with Dr. Salinas, who suggests she continue with this dose for about another week, but following this it will need to alma the dose. She will likely need an earlier appointment with Dr. Thomas. She will be re-evaluated by Speech Therapy, and hopefully the NG tube can be removed today * HTN- blood pressure is a bit labile, but overall stable * ANA MARÍA- resolved * Anticipate home tomorrow
--- NOTE | 2020-09-29 14:14 | PDOC.NEUPN ---
- Subjective Encounter Date: 09/29/20 Subjective: Patient feels much better today and able to tolerate oral intake. - Objective Vital Signs & Weight: Vital Signs (12 hours) Temp Pulse BP Pulse Ox 09/29/20 11:21 97.9 F 09/29/20 10:04 81 128/84 09/29/20 08:00 98 09/29/20 07:34 98.0 F 09/29/20 03:36 98.4 F Weight Admit Weight 174 lb 11.2 oz Weight 174 lb 11.2 oz Most Recent Monitor Data Heart Rate from ECG 106 NIBP 128/79 NIBP BP-Mean 95 Respiration from ECG 18 SpO2 98 I&O: 09/28/20 09/29/20 09/30/20 06:59 06:59 06:59 Intake Total 960 1190 40 Output Total 400 1150 Balance 560 40 40 Result Diagrams: 09/26/20 06:47 09/26/20 06:47 Radiology Reviewed by me: Yes EKG Reviewed by me: Yes ROS - Review of Systems Constitutional: denies: fever, chills, sweats, weakness, malaise, other Eyes: denies: pain, vision change, conjunctivae inflammation, eyelid inflammation, redness, other ENT: denies: ear pain, ear discharge, nose pain, nose discharge, nose congestion, mouth pain, mouth swelling, throat pain, throat swelling, other Gastrointestinal: denies: nausea, vomiting, abdominal pain, diarrhea, constipation, melena, hematochezia, other Genitourinary: denies: dysuria, frequency, incontinence, hematuria, retention, other Musculoskeletal: denies: neck pain, shoulder pain, arm pain, back pain, hand pain, leg pain, foot pain, other Neurological: reports: weakness. denies: numbness, incoordination, change in speech, confusion, seizures, other - Medication Medications: Active Medications Generic Name Dose Route Start Last Admin Trade Name Freq PRN Reason Stop Dose Admin Acetaminophen 650 mg 09/24/20 20:37 09/29/20 10:02 Acetaminophen 325 Mg Tab PO 650 mg Q4H PRN Administration Headache/Fever/Mild Pain (1-3) Amlodipine Besylate 10 mg 09/27/20 09:00 09/29/20 10:04 Amlodipine 10 Mg Tab PO 10 mg DAILY ROSARIO Administration Enoxaparin Sodium 40 mg 09/25/20 09:00 09/29/20 10:05 Enoxaparin Sodium 40 Mg/0.4 Ml Syringe SC 40 mg 0900 ROSARIO Administration Famotidine 20 mg 09/26/20 09:00 09/29/20 10:04 Famotidine/Pf 20 Mg/2ml Vial SLOW IVP 20 mg Q12HR ROSARIO Administration Hydralazine HCl 10 mg 09/24/20 20:37 09/26/20 20:41 Hydralazine 20 Mg/Ml Vial SLOW IVP 10 mg Q4H PRN Administration SBP Greater Than 180 Potassium Chloride/Dextrose/Sod Cl 1,000 mls @ 75 mls/hr 09/24/20 20:37 09/29/20 10:06 D5 1/2 Ns W/20 Meq Kcl IV Not Given .[id number] ROSARIO Loratadine 10 mg 09/27/20 12:18 09/28/20 09:06 Loratadine 10 Mg Tab PER TUBE 10 mg DAILYPRN PRN Administration Allergies Methylprednisolone Sodium Succinate 80 mg 09/28/20 09:00 09/29/20 10:06 Methylprednisolone Sod Succ 40 Mg Vial IVP 80 mg DAILY ROSARIO Administration Pyridostigmine [place] 90 mg 09/24/20 21:00 09/29/20 10:04 Pyridostigmine [place] Ir 60 Mg Tab PO 90 mg QID ROSARIO Administration Sodium Chloride 10 ml 09/25/20 21:00 09/29/20 10:06 Flush - Normal Saline 10 Ml Syringe IVF 10 ml Q12HR ROSARIO Administration Sodium Chloride 10 ml 09/25/20 10:00 09/26/20 09:55 Flush - Normal Saline 10 Ml Syringe IVF 10 ml PRN PRN Administration Saline Flush - Exam General Appearance: awake alert Eye: PERRL ENT: normocephalic atraumatic Neck: supple Respiratory: CTAB Cardiovascular: RRR Gastrointestinal: soft Extremities: no cyanosis Skin: normal turgor Neurological: no new deficit Musculoskeletal: normal tone, no muscle wasting PSYCH: normal affect, normal behavior, A&O x 3, oriented to person, oriented to place, oriented to time Results - Labs Result Diagrams: 09/26/20 06:47 09/26/20 06:47 Lab results: WBC 8.0 thou/uL (4.8-10.8) 09/26/20 06:47 Hgb 14.3 g/dL (12.0-16.0) 09/26/20 06:47 Hct 43.1 % (36.0-47.0) 09/26/20 06:47 MCV 95.2 fL (78.0-98.0) 09/26/20 06:47 Plt Count 268 thou/uL (130-400) 09/26/20 06:47 Neutrophils % 68.4 % (42.0-75.0) 09/26/20 06:47 Sodium 137 mmol/L (136-145) 09/26/20 06:47 Potassium 4.0 mmol/L (3.5-5.1) 09/26/20 06:47 Chloride 105 mmol/L (98-107) 09/26/20 06:47 Carbon Dioxide 23 mmol/L (23-31) 09/26/20 06:47 BUN 24 mg/dL (9.8-20.1) H 09/26/20 06:47 Creatinine 0.95 mg/dL (0.6-1.1) 09/26/20 06:47 Glucose 110 mg/dL (83-110) 09/26/20 06:47 Calcium 8.6 mg/dL (7.8-10.44) 09/26/20 06:47 Total Bilirubin 0.7 mg/dL (0.2-1.2) 09/24/20 16:21 AST 36 U/L (5-34) H 09/24/20 16:21 ALT 27 U/L (8-55) 09/24/20 16:21 Alkaline Phosphatase 57 U/L (40-110) 09/24/20 16:21 Creatine Kinase 83 U/L (29-168) 09/24/20 16:21 Serum Total Protein 7.7 g/dL (6.0-8.3) 09/24/20 16:21 Albumin 4.3 g/dL (3.4-4.8) 09/24/20 16:21 Urine Ketones 40 mg/dL (Negative) A 09/24/20 16:19 Urine Blood Trace (Negative) A 09/24/20 16:19 Urine Nitrite Negative (Negative) 09/24/20 16:19 Ur Leukocyte Esterase Negative Tomasa/uL (Negative) 09/24/20 16:19 Urine RBC 0-3 HPF (0-3) 09/24/20 16:19 Urine WBC 0-3 HPF (0-3) 09/24/20 16:19 Ur Squamous Epith Cells 0-3 HPF (0-3) 09/24/20 16:19 Urine Bacteria None Seen HPF (None Seen) 09/24/20 16:19 - Radiology Interpretation Chest x-ray Additional Comment: no acute process PN A/P (1) Myasthenic crisis Code(s): G70.01 - MYASTHENIA GRAVIS WITH (ACUTE) EXACERBATION Status: Acute (2) status post right hip arthroplasty Status: Acute (3) Dyslipidemia Code(s): E78.5 - HYPERLIPIDEMIA, UNSPECIFIED Status: Chronic (4) HTN (hypertension) Code(s): I10 - ESSENTIAL (PRIMARY) HYPERTENSION Status: Chronic Qualifiers: Hypertension type: essential hypertension Qualified Code(s): I10 - Essential (primary) hypertension (5) Urge incontinence Code(s): N39.41 - URGE INCONTINENCE Status: Chronic - Plan Daily Plan: PT/OT, speech therapy, respiratory therapy Ms. Graff is a 75-year-old female who has been recently diagnosed with myasthenia gravis in December [address] Meyers who has been following her as outpatient presented with myasthenia gravis exacerbation. Patient continues to improve as far as the ptosis and now able to tolerate oral intake. Completed 5 day course of IVIG. Neurochecks every 4 hours. Monitor closely negative inspiratory pressure by respiratory therapy. Respirat ory function stable at this time. Continue Mestinon home dose. Able to take oral per speech . Speech recommended NG tube removal and outpatient speech therapy for dysphagia management. Continue Solu-Medrol 80 mg daily. Switch to PO. Follow up with Dr. Meyers as outpatient for steroid dose taper and further management in a week. Continue medical management per primary team. PT/OT Case discussed in detail with the patient, nursing staff and also with the primary attending Dr. Galindo
[2020-09-30] MEDS: Pyridostigmine Bromide IR 60 MG TAB PO SCH ×2 (09:02→13:59)
[2020-09-30] MEDS: Amlodipine 10 MG TAB PO SCH (09:03)
[2020-09-30] MEDS: Enoxaparin Sodium 40 MG/0.4 ML SYRINGE SC SCH (09:03)
[2020-09-30] MEDS: Famotidine/PF 20 mg/2ml Vial SLOW IVP SCH (09:03)
[2020-09-30] MEDS: methylPREDNISolone Sod Succ 40 MG VIAL IVP SCH (09:03)
--- NOTE | 2020-09-30 15:42 | PDOC.DS.DS ---
Provider - Provider Date of Admission: 09/24/20 17:23 Date of Discharge: 09/30/20 Admitting Provider: Jarvis Villalobos MD Consultations: Gastroentrology (Dr. Li), Neurology (Dr. Salinas) Primary Care Physician: Bhavik Gonsalez MD Course - Hospital Course Hospital Course: Discharge diagnosis: 1. Myasthenia gravis flare 2. Acute kidney injury 3. COVID-19 PCR test negative Hospital course: Patient is a pleasant 75-year-old lady who was admitted to the hospital on September 24, 2020 for myasthenia gravis flare resulting in dysphagia and ptosis among other symptoms. She was seen by neurology service. She was treated with IVIG with improvement in her symptoms. Gastroenterology service was consulted over her poor oral intake secondary to oropharyngeal dysphagia. They recommended against PEG tube placement at that time. Patient continued to improve following the consultation and is being discharged home on prednisone 50 mg daily, to be tapered by her neurologist at follow-up. She is also being started on PPI for gastric protection prior to discharge. Many thanks for allowing me to participate in your patient's care. Please feel free to contact me with any questions or concerns. Discharge destination: Home Total amount of time spent coordinating this discharge: 33 minutes Resuscitation Status: 09/24/20 17:24 Resuscitation Status Routine Resuscitation Status: FULL: Full Resuscitation Discussed with: Patient - Labs Lab Results: 09/26/20 06:47 09/26/20 06:47 - Physical Exam Vitals: Vital Signs (12 hours) Temp Pulse Resp BP Pulse Ox 09/30/20 08:00 98 09/30/20 07:32 98.2 F 69 16 141/80 H 98 Weight Admit Weight 174 lb 11.2 oz Weight 174 lb 11.2 oz Most Recent Monitor Data Heart Rate from ECG 77 NIBP 127/60 NIBP BP-Mean 82 Respiration from ECG 17 SpO2 98 Physical Exam: The patient was seen and examined on the day of discharge. Patient denies chest pain or shortness of breath. Vital signs are stable. S1 and S2 are heard. Lungs are clear to auscultation bilaterally. Plan - Discharge Medications Prescriptions: predniSONE 50 mg PO QAM-WM #15 tab Pantoprazole [Protonix] 40 mg PO DAILY #30 tab Home Medications: Medication Instructions Recorded Confirmed Type L.acidoph,Paracasei, B.lactis 2 each PO HS 04/05/19 09/24/20 History [Probiotic] Lisinopril 10 mg PO DAILY 04/05/19 09/24/20 History Plexus Bio Cleanse 2 tab PO DAILY 04/05/19 09/24/20 History Ubidecarenone [Co Q-10] 200 mg PO DAILY 04/05/19 09/24/20 History Cholecalciferol (Vitamin D3) 1,000 unit PO DAILY 09/24/20 09/24/20 History [Vitamin D3] Multivit-Minerals/Folic Acid [50+ 1 tab PO DAILY 09/24/20 09/24/20 History [employer] Multivitamin] Omeprazole 20 mg PO DAILY 09/24/20 09/24/20 History Pyridostigmine [place] 90 mg PO QID 09/24/20 09/24/20 History predniSONE [Prednisone] 20 mg PO DAILY 09/24/20 09/24/20 History Aspirin [Ecotrin Low Strength] 81 mg PO DAILY 09/30/20 09/24/20 History Pantoprazole [Protonix] 40 mg PO DAILY #30 tab 09/30/20 Rx predniSONE 50 mg PO QAM-WM #15 tab 09/30/20 Rx Allergies: Sulfa (Sulfonamide Antibiotics) Allergy (Verified 04/05/19 08:33) Hives - Discharge Instructions Discharge Instructions:: Follow-up with neurologist regarding titrating prednisone dose down. - Follow up Plan Referrals: Bhavik Gonsalez MD [Primary Care Provider] - Disposition: HOME Quality - Care Measures CORE MEASURES:: N/A
[2020-09-30 18:41] VITALS: BP 140/84; TEMP 98
== END 2020-09-30 17:57 | disposition home or self-care (01) | DRG 57 ==
LOC: ERS 15:34 → 2SE 17:23 → IMCU/EMU 09-25 22:23 → T4-B 09-29 15:53
PROVIDERS: ADMIT Emergency Medicine; ATTEND Internal Medicine
DX: G70.01 Myasthenia gravis with (acute) exacerbation (principal); N17.9 Acute kidney failure, unspecified; E78.00 Pure hypercholesterolemia, unspecified; K21.9 Gastro-esophageal reflux disease without esophagitis; E78.5 Hyperlipidemia, unspecified; E66.9 Obesity, unspecified; K58.9 Irritable bowel syndrome, unspecified; M19.90 Unspecified osteoarthritis, unspecified site; Z96.641 Presence of right artificial hip joint; R13.12 Dysphagia, oropharyngeal phase; I10 Essential (primary) hypertension; Z90.89 Acquired absence of other organs; Z90.49 Acquired absence of other specified parts of digestive tract; Z88.2 Allergy status to sulfonamides; Z79.899 Other long term (current) drug therapy; Z98.890 Other specified postprocedural states; F03.90 Unspecified dementia, unspecified severity, without behavioral disturbance, psychotic disturbance, mood disturbance, and anxiety; N39.41 Urge incontinence; Z51.5 Encounter for palliative care; Z68.30 Body mass index [BMI] 30.0-30.9, adult; Z20.822 Contact with and (suspected) exposure to COVID-19
CPT/HCPCS: 36415; 36416; 71045; 74018; 80048; 80053; 81003; 81015; 82550; 85025; 87635; 94150; 94760; J0360; J1568; J1650; J2920; J3480; J7512; S0028; U0003

== ENCOUNTER 2021-01-07 08:37 | Inpatient (IN) | payer MEDICARE ==
[2021-01-07 09:18] LABS: #Basophils 0.1 thou/uL (0.0-0.2); #Eosinphils 0.1 thou/uL (0.0-0.7); #Lymphocytes 3.5 thou/uL (1.20-3.40); #Monocytes 1.1 thou/uL (0.11-0.59); #Neutrophils 11.1 thou/uL (1.40-6.50); %Basophils 0.4 % (0.0-1.0); %Eosinophils 0.3 % (0.0-10.0); %Lymphocytes 22.1 % (21.0-51.0); %Monocytes 7.1 % (0.0-10.0); %Neutrophils 70.1 % (42.0-75.0); Hemoglobin 14.7 g/dL (12.0-16.0); Mean Corpuscular HGB CONC 32.3 g/dL (32.0-36.0); Mean Corpuscular Hemoglobin 30.1 pg (27.0-31.0); Mean Corpuscular Volume 93.1 fL (78.0-98.0); Mean Platelet Volume 5.9 fL (7.4-10.4); Platelet Count 564 thou/uL (130-400); RBC Distribution Width 13.4 % (11.5-14.5); Red Blood Cell (RBC) Count 4.89 mill/uL (4.20-5.40); White Blood Cell (WBC) Count 15.8 thou/uL (4.8-10.8)
[2021-01-07 09:44] LABS: ALT (SGPT) 40 U/L (8-55); AST (SGOT) 32 U/L (5-34); Albumin 4.1 g/dL (3.4-4.8); Alkaline Phosphatase 79 U/L (40-110); Anion Gap 16 mmol/L (10-20); BUN (Urea Nitrogen) 25 mg/dL (9.8-20.1); Bilirubin, Total 0.5 mg/dL (0.2-1.2); Calc. Creatinine Clearance 0 mL/min (70-130); Calcium 9.8 mg/dL (7.8-10.44); Carbon Dioxide 30 mmol/L (23-31); Chloride 100 mmol/L (98-107); Globulin 3.4 g/dL (2.4-3.5); Glucose 97 mg/dL (83-110); Protein, Total 7.5 g/dL (5.8-8.1); Sodium 142 mmol/L (136-145)
[2021-01-07 10:03] LABS: Bacteria/HPF 4+ HPF (None Seen); Bilirubin Negative (Negative); Blood, Urine 2+ (Negative); Clarity Turbid (Clear); Glucose, Urine (Dipstick) Normal (Negative); Ketone, Urine Negative (Negative); Leukocyte 500 Leu/uL (Negative); Nitrite Negative (Negative); Protein, Urine (Dipstick) 20 mg/dL (Neg-Trace); RBC/HPF 21-50 HPF (0-3); Specific Gravity, Urine 1.019 (1.002-1.036); Squamous Epithelial None Seen HPF (0-3); Transitional Epithelial 0-3 HPF (None Seen); Urobilinogen Normal mg/dL (Less than 2); WBC/HPF Greater than 50 HPF (0-3)
[2021-01-07] MEDS ORDERED: cefTRIAXone\\ROCEPHIN 1 GM VIAL ONE (10:24)
[2021-01-07] MEDS ORDERED: OCTAGAM 10% 20 GM, OCTAGAM 10% 5 GM in Admixture Fee 1 EACH IVPB SCH (11:00)
[2021-01-07] MEDS ORDERED: Ondansetron PF 4 MG/2 ML Vial IVP PRN (11:28)
[2021-01-07] MEDS ORDERED: Acetaminophen 650 MG Suppository PR PRN (11:28)
[2021-01-07] MEDS ORDERED: methylPREDNISolone Sod Succ/PF 110 MG in Sodium Chloride 0.9% 250 ML 250 ML IVPB SCH (11:45)
[2021-01-07 12:08] LABS: SARS-CoV-2 NAA Rapid Test Not Detected (NotDetected)
[2021-01-07] MEDS: Sodium Chloride 0.9% 1,000 ML IV SCH (14:49)
[2021-01-07] MEDS: Pyridostigmine Bromide IR 60 MG TAB PO SCH ×3 (14:51→20:17)
[2021-01-07] MEDS: Morphine 2 MG/ML VIAL SLOW IVP PRN (17:57)
[2021-01-07] MEDS ORDERED: Pyridostigmine Bromide IR 60 MG TAB PO SCH ×2 (20:00)
[2021-01-08 04:17] LABS: ALT (SGPT) 36 U/L (8-55); AST (SGOT) 30 U/L (5-34); Albumin 2.8 g/dL (3.4-4.8); Alkaline Phosphatase 58 U/L (40-110); Anion Gap 11 mmol/L (10-20); BUN (Urea Nitrogen) 22 mg/dL (9.8-20.1); Bilirubin, Total 0.2 mg/dL (0.2-1.2); Calc. Creatinine Clearance 64 mL/min (70-130); Calcium 8.1 mg/dL (7.8-10.44); Carbon Dioxide 25 mmol/L (23-31); Chloride 106 mmol/L (98-107); Globulin 3.2 g/dL (2.4-3.5); Glucose 138 mg/dL (83-110); Potassium 4.9 mmol/L (3.5-5.1); Sodium 137 mmol/L (136-145)
[2021-01-08] MEDS: hydrALAZINE 20 MG/ML VIAL SLOW IVP PRN ×3 (06:31→21:18)
[2021-01-08] MEDS: Sodium Chloride 0.9% 1,000 ML IV SCH (09:19)
[2021-01-08] MEDS: Lisinopril 10 MG TAB PO SCH (09:20)
[2021-01-08] MEDS: Enoxaparin Sodium 40 MG/0.4 ML SYRINGE SC SCH (09:20)
[2021-01-08] MEDS: cefTRIAXone\\ROCEPHIN 1 GM in Sodium Chloride 0.9% 100 ML IVPB SCH (09:21)
[2021-01-08] MEDS: Pyridostigmine Bromide IR 60 MG TAB PO SCH ×3 (09:21→21:17)
[2021-01-08 10:06] LABS: #Lymphocytes 0.8 thou/uL (1.20-3.40); #Monocytes 0.1 thou/uL (0.11-0.59); #Neutrophils 6.7 thou/uL (1.40-6.50); %Basophils 0.1 % (0.0-1.0); %Eosinophils 0.1 % (0.0-10.0); %Lymphocytes 10.5 % (21.0-51.0); %Monocytes 1.7 % (0.0-10.0); %Neutrophils 87.6 % (42.0-75.0); Hemoglobin 12.7 g/dL (12.0-16.0); Mean Corpuscular HGB CONC 31.3 g/dL (32.0-36.0); Mean Corpuscular Hemoglobin 29.4 pg (27.0-31.0); Mean Corpuscular Volume 94.2 fL (78.0-98.0); Mean Platelet Volume 6.4 fL (7.4-10.4); Platelet Count 337 thou/uL (130-400); Red Blood Cell (RBC) Count 4.33 mill/uL (4.20-5.40); White Blood Cell (WBC) Count 7.6 thou/uL (4.8-10.8)
[2021-01-08] MEDS: OCTAGAM 10% 30 GM in Admixture Fee 1 EACH IVPB SCH (13:05)
[2021-01-08] MEDS: Morphine 2 MG/ML VIAL SLOW IVP PRN (16:16)
[2021-01-08] MEDS: Acetaminophen 325 MG TAB PO PRN (21:17)
[2021-01-09] MEDS: Morphine 2 MG/ML VIAL SLOW IVP PRN (00:05)
[2021-01-09 04:21] LABS: #Basophils 0.1 thou/uL (0.0-0.2); #Lymphocytes 1.8 thou/uL (1.20-3.40); #Monocytes 0.8 thou/uL (0.11-0.59); #Neutrophils 8.7 thou/uL (1.40-6.50); %Basophils 0.6 % (0.0-1.0); %Eosinophils 0.2 % (0.0-10.0); %Lymphocytes 15.6 % (21.0-51.0); %Monocytes 7.2 % (0.0-10.0); %Neutrophils 76.4 % (42.0-75.0); Hemoglobin 14.2 g/dL (12.0-16.0); Mean Corpuscular HGB CONC 30.9 g/dL (32.0-36.0); Mean Corpuscular Hemoglobin 29.1 pg (27.0-31.0); Mean Corpuscular Volume 94.1 fL (78.0-98.0); Mean Platelet Volume 6.4 fL (7.4-10.4); Platelet Count 390 thou/uL (130-400); RBC Distribution Width 13.4 % (11.5-14.5); Red Blood Cell (RBC) Count 4.89 mill/uL (4.20-5.40); White Blood Cell (WBC) Count 11.4 thou/uL (4.8-10.8)
[2021-01-09] MEDS: Sodium Chloride 0.9% 1,000 ML IV SCH ×2 (04:24→18:42)
[2021-01-09] MEDS: hydrALAZINE 20 MG/ML VIAL SLOW IVP PRN ×3 (04:34→21:15)
[2021-01-09 04:42] LABS: Anion Gap 17 mmol/L (10-20); BUN (Urea Nitrogen) 28 mg/dL (9.8-20.1); Calc. Creatinine Clearance 66 mL/min (70-130); Calcium 9.1 mg/dL (7.8-10.44); Carbon Dioxide 18 mmol/L (23-31); Chloride 105 mmol/L (98-107); Glucose 116 mg/dL (83-110); Potassium 4.6 mmol/L (3.5-5.1); Sodium 135 mmol/L (136-145)
[2021-01-09] MEDS: Lisinopril 10 MG TAB PO SCH (09:34)
[2021-01-09] MEDS: Pyridostigmine Bromide IR 60 MG TAB PO SCH ×3 (09:35→20:06)
[2021-01-09] MEDS: Enoxaparin Sodium 40 MG/0.4 ML SYRINGE SC SCH (10:02)
[2021-01-09] MEDS: cefTRIAXone\\ROCEPHIN 1 GM in Sodium Chloride 0.9% 100 ML IVPB SCH (10:56)
[2021-01-09] MEDS: predniSONE 20 MG TAB PO SCH (10:57)
[2021-01-09] MEDS: OCTAGAM 10% 30 GM in Admixture Fee 1 EACH IVPB SCH (13:10)
[2021-01-09] MEDS ORDERED: Sodium Chloride 0.65% Nasal 44 ML BOT L NARE PRN (20:45)
[2021-01-10] MEDS: hydrALAZINE 20 MG/ML VIAL SLOW IVP PRN ×3 (01:46→21:09)
[2021-01-10] MEDS: Sodium Chloride 0.9% 1,000 ML IV SCH ×2 (01:47→16:19)
[2021-01-10 03:30] LABS: #Lymphocytes 0.9 thou/uL (1.20-3.40); #Monocytes 0.6 thou/uL (0.11-0.59); %Basophils 0.1 % (0.0-1.0); %Eosinophils 0.2 % (0.0-10.0); %Lymphocytes 11.9 % (21.0-51.0); %Monocytes 7.4 % (0.0-10.0); %Neutrophils 80.4 % (42.0-75.0); Hemoglobin 12.3 g/dL (12.0-16.0); Mean Corpuscular HGB CONC 31.7 g/dL (32.0-36.0); Mean Corpuscular Hemoglobin 29.4 pg (27.0-31.0); Mean Corpuscular Volume 92.7 fL (78.0-98.0); Mean Platelet Volume 6.3 fL (7.4-10.4); Platelet Count 325 thou/uL (130-400); RBC Distribution Width 13.4 % (11.5-14.5); Red Blood Cell (RBC) Count 4.19 mill/uL (4.20-5.40); White Blood Cell (WBC) Count 7.4 thou/uL (4.8-10.8)
[2021-01-10 03:51] LABS: Anion Gap 13 mmol/L (10-20); BUN (Urea Nitrogen) 27 mg/dL (9.8-20.1); Calc. Creatinine Clearance 72 mL/min (70-130); Calcium 8.5 mg/dL (7.8-10.44); Carbon Dioxide 19 mmol/L (23-31); Chloride 104 mmol/L (98-107); Glucose 120 mg/dL (83-110); Potassium 4.3 mmol/L (3.5-5.1); Sodium 132 mmol/L (136-145)
[2021-01-10] MEDS: Acetaminophen 325 MG TAB PO PRN (04:00)
[2021-01-10] MEDS: Pyridostigmine Bromide IR 60 MG TAB PO SCH ×3 (08:04→21:06)
[2021-01-10] MEDS: predniSONE 20 MG TAB PO SCH (08:04)
[2021-01-10] MEDS: Lisinopril 10 MG TAB PO SCH (08:04)
[2021-01-10] MEDS: cefTRIAXone\\ROCEPHIN 1 GM in Sodium Chloride 0.9% 100 ML IVPB SCH (10:38)
[2021-01-10] MEDS: Enoxaparin Sodium 40 MG/0.4 ML SYRINGE SC SCH (10:38)
[2021-01-10] MEDS: OCTAGAM 10% 30 GM in Admixture Fee 1 EACH IVPB SCH (13:49)
[2021-01-10] MEDS ORDERED: ALPRAZolam 0.25 MG TAB PER TUBE PRN (19:06)
[2021-01-10] MEDS: Loratadine 10 MG TAB PO PRN (21:06)
[2021-01-10 22:25] LABS: Bilirubin Negative (Negative); Blood, Urine 1+ (Negative); Clarity Extra Turbid (Clear); Glucose, Urine (Dipstick) Normal (Negative); Ketone, Urine 20 mg/dL (Negative); Leukocyte 500 Leu/uL (Negative); Nitrite Negative (Negative); Protein, Urine (Dipstick) 50 mg/dL (Neg-Trace); RBC/HPF 21-50 HPF (0-3); Specific Gravity, Urine 1.024 (1.002-1.036); Squamous Epithelial 0-3 HPF (0-3); Urobilinogen Normal mg/dL (Less than 2); WBC/HPF Greater than 50 HPF (0-3); pH, Urine 5.5 (5.0-9.0)
[2021-01-10 22:26] LABS: Bacteria/HPF 4+ HPF (None Seen)
[2021-01-10 22:27] LABS: Urine Culture Reflex Yes Yes
[2021-01-11] MEDS: hydrALAZINE 20 MG/ML VIAL SLOW IVP PRN (03:22)
[2021-01-11] MEDS ORDERED: Lorazepam 2 MG/ML VIAL SLOW IVP SCH (03:30)
[2021-01-11] MEDS ORDERED: Labetalol HCl 100 MG/20 ML VIAL SLOW IVP SCH (03:30)
[2021-01-11] MEDS: cloNIDine 0.1 MG TAB PO PRN ×2 (07:39→20:27)
[2021-01-11] MEDS: Enoxaparin Sodium 40 MG/0.4 ML SYRINGE SC SCH (07:39)
[2021-01-11] MEDS: predniSONE 20 MG TAB PO SCH (07:40)
[2021-01-11] MEDS: Pyridostigmine Bromide IR 60 MG TAB PO SCH ×3 (07:40→20:27)
[2021-01-11] MEDS: Lisinopril 10 MG TAB PO SCH (07:40)
[2021-01-11] MEDS: Loratadine 10 MG TAB PO PRN (07:40)
[2021-01-11] MEDS: Sodium Chloride 0.9% 1,000 ML IV SCH (07:46)
[2021-01-11] MEDS ORDERED: Lisinopril 10 MG TAB PO SCH (09:07)
[2021-01-11] MEDS ORDERED: Furosemide 20 MG TAB PO SCH (09:15)
[2021-01-11] MEDS: Lisinopril 20 MG TAB PO SCH ×2 (10:13→10:55)
[2021-01-11 10:45] LABS: #Lymphocytes 0.5 thou/uL (1.20-3.40); #Monocytes 0.7 thou/uL (0.11-0.59); #Neutrophils 11.4 thou/uL (1.40-6.50); %Basophils 0.1 % (0.0-1.0); %Eosinophils 0.4 % (0.0-10.0); %Lymphocytes 3.9 % (21.0-51.0); %Monocytes 5.3 % (0.0-10.0); %Neutrophils 90.4 % (42.0-75.0); Hemoglobin 12.8 g/dL (12.0-16.0); Mean Corpuscular HGB CONC 33.9 g/dL (32.0-36.0); Mean Corpuscular Hemoglobin 31.1 pg (27.0-31.0); Mean Platelet Volume 6.3 fL (7.4-10.4); Platelet Count 301 thou/uL (130-400); RBC Distribution Width 13.6 % (11.5-14.5); Red Blood Cell (RBC) Count 4.11 mill/uL (4.20-5.40); White Blood Cell (WBC) Count 12.6 thou/uL (4.8-10.8)
[2021-01-11 11:13] LABS: Anion Gap 15 mmol/L (10-20); BUN (Urea Nitrogen) 31 mg/dL (9.8-20.1); Calc. Creatinine Clearance 77 mL/min (70-130); Calcium 8.8 mg/dL (7.8-10.44); Carbon Dioxide 19 mmol/L (23-31); Chloride 108 mmol/L (98-107); Glucose 165 mg/dL (83-110); Potassium 5.8 mmol/L (3.5-5.1); Sodium 136 mmol/L (136-145)
[2021-01-11] MEDS ORDERED: Cefepime 1 GM in Sodium Chloride 0.9% 100 ML IVPB SCH (12:15)
[2021-01-11] MEDS: OCTAGAM 10% 30 GM in Admixture Fee 1 EACH IVPB SCH (14:49)
[2021-01-11] MEDS: Cefepime 1 GM in Sodium Chloride 0.9% 100 ML IVPB SCH (20:27)
[2021-01-12 04:46] LABS: #Lymphocytes 0.9 thou/uL (1.20-3.40); #Monocytes 0.9 thou/uL (0.11-0.59); #Neutrophils 5.8 thou/uL (1.40-6.50); %Basophils 0.1 % (0.0-1.0); %Eosinophils 0.2 % (0.0-10.0); %Lymphocytes 11.4 % (21.0-51.0); %Monocytes 12.2 % (0.0-10.0); %Neutrophils 76.1 % (42.0-75.0); Hemoglobin 12.7 g/dL (12.0-16.0); Mean Corpuscular HGB CONC 31.3 g/dL (32.0-36.0); Mean Corpuscular Hemoglobin 28.6 pg (27.0-31.0); Mean Corpuscular Volume 91.4 fL (78.0-98.0); Mean Platelet Volume 6.5 fL (7.4-10.4); Platelet Count 268 thou/uL (130-400); RBC Distribution Width 13.6 % (11.5-14.5); Red Blood Cell (RBC) Count 4.45 mill/uL (4.20-5.40); White Blood Cell (WBC) Count 7.6 thou/uL (4.8-10.8)
[2021-01-12 05:07] LABS: Anion Gap 10 mmol/L (10-20); BUN (Urea Nitrogen) 28 mg/dL (9.8-20.1); Calc. Creatinine Clearance 82 mL/min (70-130); Calcium 8.7 mg/dL (7.8-10.44); Carbon Dioxide 25 mmol/L (23-31); Chloride 102 mmol/L (98-107); Glucose 124 mg/dL (83-110); Potassium 4.4 mmol/L (3.5-5.1); Sodium 133 mmol/L (136-145)
[2021-01-12] MEDS: hydrALAZINE 20 MG/ML VIAL SLOW IVP PRN (05:20)
[2021-01-12] MEDS: Enoxaparin Sodium 40 MG/0.4 ML SYRINGE SC SCH (08:59)
[2021-01-12] MEDS: Lisinopril 20 MG TAB PO SCH (08:59)
[2021-01-12] MEDS: Cefepime 1 GM in Sodium Chloride 0.9% 100 ML IVPB SCH ×2 (08:59→20:44)
[2021-01-12] MEDS: predniSONE 20 MG TAB PO SCH (08:59)
[2021-01-12] MEDS: Sodium Chloride 0.9% 1,000 ML IV SCH ×2 (09:00→22:54)
[2021-01-12] MEDS: Pyridostigmine Bromide IR 60 MG TAB PO SCH ×3 (09:00→20:45)
[2021-01-12 14:08] VITALS: BMI 29.9
[2021-01-12] MEDS ORDERED: hydrALAZINE 10 MG TAB PO SCH (15:00)
[2021-01-12] MEDS: Acetaminophen 325 MG TAB PO PRN ×2 (15:19→20:45)
[2021-01-13] MEDS: Lisinopril 20 MG TAB PO SCH (08:07)
[2021-01-13] MEDS: predniSONE 20 MG TAB PO SCH (08:08)
[2021-01-13] MEDS: Pyridostigmine Bromide IR 60 MG TAB PO SCH ×3 (08:08→20:36)
[2021-01-13] MEDS: Cefepime 1 GM in Sodium Chloride 0.9% 100 ML IVPB SCH ×2 (08:09→20:36)
[2021-01-13] MEDS: Enoxaparin Sodium 40 MG/0.4 ML SYRINGE SC SCH (08:11)
[2021-01-13] MEDS ORDERED: Furosemide 20 MG TAB PER TUBE SCH (14:15)
[2021-01-13] MEDS: Sodium Chloride 0.9% 1,000 ML IV SCH (15:47)
[2021-01-14] MEDS: Acetaminophen 325 MG TAB PO PRN (06:57)
[2021-01-14] MEDS: Lisinopril 20 MG TAB PO SCH (09:20)
[2021-01-14] MEDS: predniSONE 20 MG TAB PO SCH (09:20)
[2021-01-14] MEDS: Pyridostigmine Bromide IR 60 MG TAB PO SCH ×3 (09:21→20:21)
[2021-01-14] MEDS: Enoxaparin Sodium 40 MG/0.4 ML SYRINGE SC SCH (09:33)
[2021-01-14] MEDS: Cefepime 1 GM in Sodium Chloride 0.9% 100 ML IVPB SCH ×2 (09:34→20:21)
[2021-01-15] MEDS: Cefepime 1 GM in Sodium Chloride 0.9% 100 ML IVPB SCH (08:20)
[2021-01-15] MEDS: Pyridostigmine Bromide IR 60 MG TAB PO SCH ×3 (08:21→20:11)
[2021-01-15] MEDS: Enoxaparin Sodium 40 MG/0.4 ML SYRINGE SC SCH (08:21)
[2021-01-15] MEDS: predniSONE 20 MG TAB PO SCH (08:22)
[2021-01-15 08:56] LABS: #Lymphocytes 2.5 thou/uL (1.20-3.40); #Monocytes 0.6 thou/uL (0.11-0.59); #Neutrophils 5.1 thou/uL (1.40-6.50); %Basophils 0.5 % (0.0-1.0); %Eosinophils 0.5 % (0.0-10.0); %Lymphocytes 29.7 % (21.0-51.0); %Monocytes 7.1 % (0.0-10.0); %Neutrophils 62.3 % (42.0-75.0); Hemoglobin 12.9 g/dL (12.0-16.0); Mean Corpuscular HGB CONC 32.8 g/dL (32.0-36.0); Mean Corpuscular Hemoglobin 29.2 pg (27.0-31.0); Mean Corpuscular Volume 89.1 fL (78.0-98.0); Mean Platelet Volume 6.6 fL (7.4-10.4); Platelet Count 238 thou/uL (130-400); RBC Distribution Width 13.8 % (11.5-14.5); Red Blood Cell (RBC) Count 4.41 mill/uL (4.20-5.40); White Blood Cell (WBC) Count 8.3 thou/uL (4.8-10.8)
[2021-01-15 09:15] LABS: Anion Gap 12 mmol/L (10-20); BUN (Urea Nitrogen) 31 mg/dL (9.8-20.1); Calc. Creatinine Clearance 79 mL/min (70-130); Carbon Dioxide 26 mmol/L (23-31); Chloride 104 mmol/L (98-107); Glucose 75 mg/dL (83-110); Potassium 4.1 mmol/L (3.5-5.1); Sodium 138 mmol/L (136-145)
[2021-01-15] MEDS: Acetaminophen 325 MG TAB PO PRN (16:27)
[2021-01-16] MEDS: cloNIDine 0.1 MG TAB PO PRN (01:02)
[2021-01-16 05:52] VITALS: TEMP 97.9
[2021-01-16 07:39] VITALS: BP 167/89
[2021-01-16] MEDS: predniSONE 20 MG TAB PO SCH (08:02)
[2021-01-16] MEDS: Enoxaparin Sodium 40 MG/0.4 ML SYRINGE SC SCH (08:02)
[2021-01-16] MEDS: Pyridostigmine Bromide IR 60 MG TAB PO SCH (08:02)
[2021-01-16] MEDS ORDERED: Lisinopril 10 MG TAB PO SCH (09:00)
== END 2021-01-16 11:11 | disposition home or self-care (01) | DRG 56 ==
LOC: ERS 08:37 → IMCU/EMU 09:46 → T4-B 01-14 22:38
PROVIDERS: ADMIT Internal Medicine; ATTEND Internal Medicine
PROC: 30233S1 Transfusion of Nonautologous Globulin into Peripheral Vein, Percutaneous Approach (ICD-10-PCS; principal; 2021-01-07)
DX: G70.01 Myasthenia gravis with (acute) exacerbation (principal); J96.01 Acute respiratory failure with hypoxia; N39.0 Urinary tract infection, site not specified; N17.9 Acute kidney failure, unspecified; E87.1 Hypo-osmolality and hyponatremia; K21.9 Gastro-esophageal reflux disease without esophagitis; K44.9 Diaphragmatic hernia without obstruction or gangrene; E66.9 Obesity, unspecified; E78.00 Pure hypercholesterolemia, unspecified; Z96.641 Presence of right artificial hip joint; K58.9 Irritable bowel syndrome, unspecified; E78.5 Hyperlipidemia, unspecified; N39.41 Urge incontinence; N18.30 Chronic kidney disease, stage 3 unspecified; I12.9 Hypertensive chronic kidney disease with stage 1 through stage 4 chronic kidney disease, or unspecified chronic kidney disease; H02.409 Unspecified ptosis of unspecified eyelid; R19.7 Diarrhea, unspecified; T38.0X5A Adverse effect of glucocorticoids and synthetic analogues, initial encounter; Z68.28 Body mass index [BMI] 28.0-28.9, adult; Z88.2 Allergy status to sulfonamides; I25.2 Old myocardial infarction; Z90.49 Acquired absence of other specified parts of digestive tract; Z79.82 Long term (current) use of aspirin; Z90.710 Acquired absence of both cervix and uterus; Z79.52 Long term (current) use of systemic steroids
CPT/HCPCS: 0240U; 36415; 71045; 74018; 80048; 80053; 81001; 81003; 81015; 84484; 85025; 87086; 93005; 94150; 96365; 96367; J0360; J0692; J0696; J1568; J1650; J2060; J2270; J2405; J2930; J3490; J7050; J7512

== ENCOUNTER 2021-07-03 08:47 | Outpatient (CLI) | payer MEDICARE | END 2021-07-03 08:48 | disposition home or self-care (01) | LOC: BICMAMMO 08:47 | PROVIDERS: ATTEND Family Medicine | DX: S22.000A Wedge compression fracture of unspecified thoracic vertebra, initial encounter for closed fracture (principal); M85.852 Other specified disorders of bone density and structure, left thigh | CPT/HCPCS: 77080 ==

== ENCOUNTER 2021-11-19 11:53 | Emergency (ER) | payer MEDICARE | END 2021-11-19 13:28 | disposition home or self-care (01) | LOC: ERS 11:53 | DX: M79.89 Other specified soft tissue disorders (principal); K21.9 Gastro-esophageal reflux disease without esophagitis; I10 Essential (primary) hypertension; E66.9 Obesity, unspecified; Z79.899 Other long term (current) drug therapy ==

== ENCOUNTER 2023-02-03 09:17 | Outpatient (CLI) | payer MEDICARE | END 2023-02-03 09:18 | disposition home or self-care (01) | LOC: BICMAMMO 09:17 | PROVIDERS: ATTEND Internal Medicine | DX: Z12.31 Encounter for screening mammogram for malignant neoplasm of breast (principal); Z13.820 Encounter for screening for osteoporosis; M85.852 Other specified disorders of bone density and structure, left thigh; Z91.89 Other specified personal risk factors, not elsewhere classified | CPT/HCPCS: 77063; 77067; 77080 ==